=== PATIENT | male | born 1935 | race Caucasian/White ===

== ENCOUNTER 2017-01-13 05:40 | Emergency (ER) | payer OTHER ==
[~2017-01-13] VITALS: Ht 165.1 cm; Wt 68.0 kg
[~2017-01-13 05:40] MED LIST: ACTOS45 MG PO; ASPIRIN81 M1 PO; BENAZEPRIL HYDRO5 M1 PO; CARVEDILOL6.25 MG PO; COREG6.25 MG PO; HYTRIN PO; IMDUR60 M1 PO; ISOSORBIDE MONO60 M1 PO; JANUMET 1000 MG1 TAB PO; JANUMET XR 10001 TE1 PO; LOTENSIN5 MG PO; RANEXA500 MG PO; SIMVASTATIN20 M1 PO; TERAZOSIN5 MG PO; ZOCOR20 MG PO
[2017-01-13 05:47] VITALS: BP 125/68
--- NOTE | 2017-01-13 05:58 | NUR ---
PT TAKEN TO BED 7
--- NOTE | 2017-01-13 06:07 | NUR ---
Tameka langston in [facility] - 01/13/17 at [address] Smith evaluating patient at bedside.
--- NOTE | 2017-01-13 06:08 | NUR ---
ACCIDENTALLY CUT RIGHT WRIST WITH THE BROKEN PLATE 30 MINUTES AGO. DENIES PAIN AT THIS TIME. PT IS AWAKE ALERT ORIENTED. ERMD AWARE.
--- NOTE | 2017-01-13 06:08 | NUR ---
Tameka langston in [facility] - 01/13/17 at [address] Smith evaluating patient at bedside.
[2017-01-13] MEDS ORDERED: LIDOCAINE/EPI 1% 1:100000 20 ML VIAL INJ ONE (06:15)
--- NOTE | 2017-01-13 06:20 | NUR ---
Dr. Smith evaluating patient at bedside.
[2017-01-13] MEDS ORDERED: BACITRACIN OINT 500 UNITS/GM PKT TP ONE ×3 (06:50→06:52)
[2017-01-13 06:59] VITALS: BP 121/75
--- NOTE | 2017-01-13 07:00 | NUR ---
Patient discharged with v/s stable. Written and verbal after care instructions given and explained. Patient alert, oriented and verbalized understanding of instructions. Ambulatory with steady gait. All questions addressed prior to discharge. ID band removed. Patient advised to follow up with PMD. Rx of ACETAMINOPHEN 500MG 1 TAB EVERY 6 HOURS NEEDED FOR PAIN given. Patient educated on indication of medication including possible reaction and side effects. Opportunity to ask questions provided and answered.
== END 2017-01-13 07:00 | disposition home or self-care (01) ==
LOC: MED 05:40
DX: S61.511A Laceration without foreign body of right wrist, initial encounter (principal); E11.9 Type 2 diabetes mellitus without complications; I10 Essential (primary) hypertension; Z85.46 Personal history of malignant neoplasm of prostate; Z79.82 Long term (current) use of aspirin; Z79.899 Other long term (current) drug therapy; W45.8XXA Other foreign body or object entering through skin, initial encounter; W22.8XXA Striking against or struck by other objects, initial encounter; Y93.89 Activity, other specified; Y92.89 Other specified places as the place of occurrence of the external cause; Y99.8 Other external cause status
CPT/HCPCS: 12031; 90471; 90715; 99283; J2001

== ENCOUNTER 2017-01-27 12:06 | Emergency (ER) | payer OTHER ==
[~2017-01-27] VITALS: Ht 165.1 cm; Wt 69.4 kg
[~2017-01-27 12:06] MED LIST changes: -ACTOS45 MG PO; +ASPI81CT89 PO; -ASPIRIN81 M1 PO; +BENA5TAB13 PO; -BENAZEPRIL HYDRO5 M1 PO; +CARV6.25 PO; -CARVEDILOL6.25 MG PO; -COREG6.25 MG PO; -HYTRIN PO; -IMDUR60 M1 PO; +ISOS60TE PO; -ISOSORBIDE MONO60 M1 PO; -JANUMET 1000 MG1 TAB PO; -JANUMET XR 10001 TE1 PO; -LOTENSIN5 MG PO; +METF1TER8 PO; -RANEXA500 MG PO; +RANO500T3 PO; +SIMV20TA1 PO; -SIMVASTATIN20 M1 PO; +TERA5CAP8 PO; -TERAZOSIN5 MG PO; -ZOCOR20 MG PO
[2017-01-27 12:18] VITALS: BP 115/58
--- NOTE | 2017-01-27 12:30 | NUR ---
PATIENT PRESENTS TO ED WITH LACERATION REPAIRED RIGHT WRIST . PT STATES HERE FOR SUTURE REMOVAL . DENIES N/V/D; SKIN IS PINK/WARM/DRY; AAOX4 WITH EVEN AND STEADY GAIT; LUNGS CLEAR BL; HR EVEN AND REGULAR; PT DENIES ANY FEVER, CP, SOB, OR COUGH AT THIS TIME; PATIENT STATES PAIN OF 0/10 AT THIS TIME; VSS; PATIENT POSITIONED FOR COMFORT; HOB ELEVATED; BEDRAILS UP X2; BED DOWN. ER MD MADE AWARE OF PT STATUS.
--- NOTE | 2017-01-27 12:42 | NUR ---
Patient discharged with v/s stable. Written and verbal after care instructions given and explained. Patient verbalized understanding. Ambulatory with steady gait. All questions addressed prior to discharge. Advised to follow up with PMD.
[2017-01-27 12:43] VITALS: BP 132/82
== END 2017-01-27 12:42 | disposition home or self-care (01) ==
LOC: MED 12:06
DX: S61.511D Laceration without foreign body of right wrist, subsequent encounter (principal); E11.9 Type 2 diabetes mellitus without complications; I10 Essential (primary) hypertension; Z86.79 Personal history of other diseases of the circulatory system; Z85.46 Personal history of malignant neoplasm of prostate; Z79.82 Long term (current) use of aspirin; W22.8XXD Striking against or struck by other objects, subsequent encounter; Y92.89 Other specified places as the place of occurrence of the external cause; Y99.8 Other external cause status
CPT/HCPCS: 82948; 99283

== ENCOUNTER 2018-02-15 13:13 | Emergency (ER) | payer OTHER ==
[~2018-02-15] VITALS: Ht 160 cm; Wt 66.7 kg
[2018-02-15 13:24] VITALS: BP 149/84
--- NOTE | 2018-02-15 13:24 | NUR ---
Pt ambulated with assistance of daughter to bed 4.
--- NOTE | 2018-02-15 13:35 | NUR ---
82/M bib family accompanied to bed by daughter for evaluation of fall earlier today. Pt reports he had a trip and fall, pt denies syncope or loss of conciousness. Pt denies any pain at this time. Two skin tears to right arm and one to left arm. Pt has laceration to inner upper lip and swelling, no active bleeding noted. Patient is acting normal for patient according to daughter. Speech is slightly slurred and delayed. AOX4. Indonesian speaking. VSS. Daughter at bedside. Pt sitting at bedside comfortably. One side rail up. All needs addressed. Awaiting ERMD.
--- NOTE | 2018-02-15 14:19 | NUR ---
REPORT GIVEN TO MAAME MADSEN.
--- NOTE | 2018-02-15 15:25 | NUR ---
DR SHARP AT BEDSIDE SPEAKING WITH PT AT FAMILY
[2018-02-15 15:49] VITALS: BP 142/82
--- NOTE | 2018-02-15 15:49 | NUR ---
Patient discharged with v/s stable. Written and verbal after care instructions given and explained. Patient alert, oriented and verbalized understanding of instructions. Ambulatory with steady gait. All questions addressed prior to discharge. ID band removed. Patient advised to follow up with PMD. Rx of MOTRIN 800MG, CLINDAMYCIN 300MG given. Patient educated on indication of medication including possible reaction and side effects. Opportunity to ask questions provided and answered.
== END 2018-02-15 15:49 | disposition home or self-care (01) ==
LOC: MED 13:13
DX: S02.32XA Fracture of orbital floor, left side, initial encounter for closed fracture (principal); S01.511A Laceration without foreign body of lip, initial encounter; E11.9 Type 2 diabetes mellitus without complications; I10 Essential (primary) hypertension; Z85.46 Personal history of malignant neoplasm of prostate; W10.9XXA Fall (on) (from) unspecified stairs and steps, initial encounter; Y93.89 Activity, other specified; Y99.8 Other external cause status; Y92.89 Other specified places as the place of occurrence of the external cause; Z79.899 Other long term (current) drug therapy
CPT/HCPCS: 70486; 82948; 90715; 93005; 99284

== ENCOUNTER 2018-03-05 10:00 | Emergency (ER) | payer OTHER ==
[~2018-03-05] VITALS: Ht 162.6 cm; Wt 69.2 kg
[2018-03-05 10:09] VITALS: BP 140/77
--- NOTE | 2018-03-05 10:16 | NUR ---
PT AMBULATES TO BED 8, REPORT GIVEN TO CALE POND
--- NOTE | 2018-03-05 10:30 | NUR ---
PT. BIB BY DAUGHTER TO ED C/O FANTA. LEG SWELLING X 2 WEEKS AND L EYE SWELLING . DAUGHTER STATES " HE HAS HAD THIS LEG SWELLING FOR 2 WEEKS I HAVE TAKEN HIM TO HIS PRIMARY BUT IT HAS GOTTEN WORSE, ALSO HE WOKE UP WITH HIS L EYE BEING SWOLLEN AND SOME CLEAR FLUID DRAINAGE COMING OUT". PT. AAOX4, RR EVEN AND UNLABORED, LS: CLEAR BILATERALLY, DENIES PAIN, DENIES CP, DENIES SOB, PT. HAS FANTA ANKLE SWELLING 3+ PITTING, ABD ROUND AND HARD DENIES PAIN UPON PALPATION, L EYE SWELLING NOTED, W NO VISION CHANGES AT THIS TIME. PUPILS EQUAL ROUND AND REACTIVE 2MM TO LIGHT. DENIES N/V/D. ER NOTIFIED. WILL CONTINUE TO MONITOR.
--- NOTE | 2018-03-05 10:53 | NUR ---
PT. UNABLE TO PROVIDE URINE SAMPLE AT THIS TIME, PROVIDED WATER.
[2018-03-05 11:00] LABS: BASOPHILS % (AUTO) 0.5 % (0.0-2.0); EOSINOPHILS % (AUTO) 0.3 % (0.0-4.0); HEMATOCRIT 32.7 % (36-52); HEMOGLOBIN 10.7 g/dL (12.0-18.0); LYMPHOCYTES # (AUTO) 0.8 K/uL (2.0-11.5); LYMPHOCYTES % (AUTO) 9.8 % (20.5-51.1); MEAN CORPUSCULAR HEMOGLOBIN 26 pg (27-31); MEAN CORPUSCULAR HGB CONC 33 g/dL (33-37); MEAN CORPUSCULAR VOLUME 79.1 fL (80-94); MONOCYTES # (AUTO) 0.9 K/uL (0.8-1.0); NEUTROPHILS # (AUTO) 6.4 K/uL (1.8-7.7); NEUTROPHILS % (AUTO) 78.4 % (42.2-75.2); PLATELET COUNT (AUTO) 230 K/uL (140-450); RED BLOOD CELL COUNT(AUTO) 4.13 MIL/uL (4.20-6.10); RED CELL DISTRIBUTION WIDTH 15.3 % (11.6-13.7); WHITE BLOOD COUNT (AUTO) 8.2 K/uL (4.8-10.8)
--- NOTE | 2018-03-05 11:10 | NUR ---
AMBULATED PT TO RESTROOM, STEADY GAIT, UNABLE TO PROVIDE URINE AT THIS TIME, ER NOTIFIED. PROVIDED MORE WATER TO PT.
[2018-03-05 11:19] LABS: ANION GAP 13.4 (8-16); CARBON DIOXIDE 24.2 mmol/L (21-32); CHLORIDE 85 mmol/L (98-107); CREATININE 0.8 mg/dL (0.7-1.3); GLUCOSE 154 mg/dL (74-106); POTASSIUM 4.6 mmol/L (3.5-5.1); SODIUM SERUM 118 mmol/L (136-145); UREA NITROGEN, BLOOD 8 mg/dL (7-18)
--- NOTE | 2018-03-05 11:19 | NUR ---
LENKA FROM LAB CALLED W/ CRITICAL LAB VALUE OF SODIUM: 118. DR. EL NOTIFIED. AWAITING ORDERS, WILL CONTINUE TO MONITOR.
--- NOTE | 2018-03-05 11:19 | NUR ---
Tameka langston in [facility] - 03/05/18 at 1126 by MEDJASON GAVIN FROM LAB CALLED W/ CRITICAL LAB VALUE OF SODIUM: 118. DR. EL NOTIFIED. AWAITING ORDERS, WILL CONTINUE TO MONITOR.
[2018-03-05 11:20] LABS: ALBUMIN 2.6 g/dL (3.4-5.0); ASPARTATE AMINOTRANSFERASE 26 U/L (15-37); TOTAL BILIRUBIN 0.5 mg/dL (0.0-1.0)
--- NOTE | 2018-03-05 12:15 | NUR ---
PT. IN BED RESTING COMFORTABLY, RR EVEN AND UNLABORED, NO COMPLAINTS AT THIS TIME, BED IN LOWEST POSITION, AT BEDSIDE WILL CONTINUE TO MONITOR.
[2018-03-05 13:25] VITALS: BP 168/84
== END 2018-03-05 13:22 | disposition home or self-care (01) ==
LOC: MED 10:00
DX: I11.0 Hypertensive heart disease with heart failure (principal); I50.9 Heart failure, unspecified; D64.9 Anemia, unspecified; E11.9 Type 2 diabetes mellitus without complications; E87.1 Hypo-osmolality and hyponatremia; Z86.73 Personal history of transient ischemic attack (TIA), and cerebral infarction without residual deficits; Z85.46 Personal history of malignant neoplasm of prostate; Z98.61 Coronary angioplasty status; Z79.899 Other long term (current) drug therapy
CPT/HCPCS: 71045; 80053; 83880; 84484; 85025; 93005; 99285; Q0092

== ENCOUNTER 2018-04-23 22:50 | Inpatient (IN) | payer OTHER ==
[~2018-04-23] VITALS: Ht 165.1 cm; Wt 68.0 kg
[2018-04-23 23:08] VITALS: BP 129/65
--- NOTE | 2018-04-23 23:13 | NUR ---
TO LOBBY A/W BED, ECTOR DIAMOND NOTED
--- NOTE | 2018-04-23 23:50 | NUR ---
PT TAKEN TO BED 8
--- NOTE | 2018-04-24 | NUR ---
PATIENT IS A 82 Y/O MALE WHO PRESENTS TO THE ED C/O BILATERAL LEG PAIN. DAUGHTER STATES THAT HE WAS ADMITTED TO [facility] WITH [facility]ILAR SXS. PT DOES NOT REPORT PAIN. NOTED +2 BILATERAL PITTING EDEMA. PT DENIES CP, SOB, N/V/D. PT AWAKE AND ALERT, RR EVEN/UNLABORED. PT REPOSITIONED FOR COMFORT, BED IN LOWEST POSITION. ER MD DR. GARRISON NOTIFIED. WILL CONTINUE TO MONITOR.
--- NOTE | 2018-04-24 00:44 | NUR ---
Dr. Smith evaluating patient at bedside.
[2018-04-24 01:13] LABS: GLUCOSE 323 mg/dL (74-106); UREA NITROGEN, BLOOD 13 mg/dL (7-18)
[2018-04-24 01:14] LABS: CREATININE 0.9 mg/dL (0.7-1.3)
[2018-04-24 01:17] LABS: ANION GAP 11.4 (8-16); CARBON DIOXIDE 24.3 mmol/L (21-32); CHLORIDE 87 mmol/L (98-107); POTASSIUM 4.7 mmol/L (3.5-5.1); SODIUM SERUM 118 mmol/L (136-145)
--- NOTE | 2018-04-24 01:30 | NUR ---
PATIENT RESTING AT THIS TIME. NO SIGNS OF DISTRESS.
[2018-04-24] MEDS ORDERED: NACL 0.9% 1,000 ML IV ONE (01:40)
--- NOTE | 2018-04-24 02:16 | NUR ---
# 16 FR Davidson catheter with 10 ml utilizing sterile technique. Immediate return of 2000 ml COCA COLA urine noted. Bedside drainage bag placed below level of bladder. Urine sample collected and sent to lab. Pt tolerated procedure WELL.
[2018-04-24] MEDS ORDERED: ONDANSETRON 4 MG/2 ML VIAL IM/IVP PRN (02:20)
[2018-04-24] MEDS ORDERED: HYDROcodone/APAP 5/325 MG 1 TAB TAB PO PRN (02:20)
[2018-04-24] MEDS ORDERED: DOCUSATE SODIUM 100 MG GELCAP PO PRN (02:20)
[2018-04-24] MEDS ORDERED: ACETAMINOPHEN 325 MG TAB PO PRN (02:20)
--- NOTE | 2018-04-24 02:37 | NUR ---
Dr. Fox evaluating patient at bedside.
[2018-04-24 02:43] LABS: PROTHROMBIN TIME 10.7 secs (10.8-13.4)
[2018-04-24 02:55] LABS: MEAN CORPUSCULAR HEMOGLOBIN 26 pg (27-31); MEAN CORPUSCULAR HGB CONC 32 g/dL (33-37); MEAN CORPUSCULAR VOLUME 79.4 fL (80-94); RED BLOOD CELL COUNT(AUTO) 3.53 MIL/uL (4.20-6.10); WHITE BLOOD COUNT (AUTO) 8.8 K/uL (4.8-10.8)
[2018-04-24 02:56] LABS: LYMPHOCYTES % (AUTO) 8.7 % (20.5-51.1); PLATELET COUNT (AUTO) 237 K/uL (140-450); RED CELL DISTRIBUTION WIDTH 15.9 % (11.6-13.7)
[2018-04-24 02:57] LABS: BASOPHILS % (AUTO) 0.3 % (0.0-2.0); EOSINOPHILS % (AUTO) 0.5 % (0.0-4.0); LYMPHOCYTES # (AUTO) 0.8 K/uL (2.0-11.5); MONOCYTES % (AUTO) 11.5 % (1.7-9.3)
--- NOTE | 2018-04-24 03:11 | NUR ---
Patient will be admitted to care of DR. STEEL. Admited to TELE. Will go to room 110B. Belongings list completed. Report to LOY MADSEN.
[2018-04-24 03:24] LABS: MAGNESIUM 1.4 mg/dL (1.8-2.4)
[2018-04-24 03:25] LABS: FREE T4 (FREE THYROXINE) 1.14 ng/dL (0.76-1.46); THYROID STIMULATING HORMONE 1.68 uIU/mL (0.34-3.74)
--- NOTE | 2018-04-24 03:25 | NUR ---
ADMITTED PATIENT TO THE TELE UNIT, PATIENT AWAKE ORIENTED X2, BULGARIAN SPEAKING. NO S/S OF DISTRESS NOTED, RESPIRATION EVEN AND UNLABORED, ON ROOM AIR. IV PATENT AND INTACT, MALCOLM IN PLACE, DRAINING PINK URINE BY GRAVITY. CALL LIGHT WAS NOT AVAILABLE IN THE ROOM, CHARGE IS AWARE AND WILL INFORMED THE ENGINEERING DEPARTMENT. SAFETY MEASURE ENSURED, WILL CONTINUE TO MONITOR.
[2018-04-24 03:35] VITALS: BP 136/51
[2018-04-24] MEDS ORDERED: LORazepam 1 MG TAB PO PRN ×2 (03:40→15:33)
[2018-04-24] MEDS ORDERED: DEXTROSE 50% 50 ML SYR IVP PRN (03:40)
[2018-04-24 03:44] LABS: CHOL/HDL RATIO 2.4 (1-4.5)
[2018-04-24] MEDS ORDERED: FUROSEMIDE 20 MG/2 ML VIAL IVP SCH ×2 (04:15→15:00)
[2018-04-24] MEDS ORDERED: SODIUM CHLORIDE 1 GM TAB PO SCH ×2 (04:15→07:30)
[2018-04-24] MEDS ORDERED: MAGNESIUM OXIDE 400 MG TAB PO SCH (04:15)
--- NOTE | 2018-04-24 04:26 | NUR ---
SALT TAB NOT AVAILABLE, MANAGER HVAC UNABLE TO GET THE SALT TAB, INFORMED DR. FABIEN DR SAID," IT'S OKAY TO WAIT UNTIL MORNING SHIFT."
--- NOTE | 2018-04-24 05:59 | NUR ---
PATIENT LEFT UNIT FOR HEAD CT IN STABLE CONDITION.
--- NOTE | 2018-04-24 06:15 | NUR ---
PATIENT BACK TO THE ROOM, RESTING IN BED, NO S/S OF DISTRESS NOTED.
--- NOTE | 2018-04-24 06:24 | NUR ---
RECEIVED FAX FOR CT HEAD RESULT, MADE DR. LEHMAN AWARE. NO ORDER RECEIVED AT THIS TIME.
[2018-04-24 06:44] LABS: ALBUMIN 2.3 g/dL (3.4-5.0); BILIRUBIN,DIRECT 0.2 mg/dL (0.0-0.3); TOTAL BILIRUBIN 0.3 mg/dL (0.0-1.0)
[2018-04-24 06:48] LABS: ANION GAP 12.4 (8-16); CARBON DIOXIDE 23.8 mmol/L (21-32); CHLORIDE 90 mmol/L (98-107); CREATININE 0.8 mg/dL (0.7-1.3); GLUCOSE 176 mg/dL (74-106); POTASSIUM 4.2 mmol/L (3.5-5.1); UREA NITROGEN, BLOOD 11 mg/dL (7-18)
[2018-04-24 07:10] LABS: MAGNESIUM 1.3 mg/dL (1.8-2.4); PHOSPHORUS 2.9 mg/dL (2.5-4.9)
--- NOTE | 2018-04-24 07:25 | NUR ---
ENDORSED PLAN OF CARE TO DAY SHIFT, PATIENT IS IN STABLE CONDITION.
--- NOTE | 2018-04-24 07:26 | NUR ---
RECEIVED BEDSIDE REPORT FROM SENIOR IOS DEVELOPER NURSE. PATIENT IS SLEEPING. EASILY AROUSABLE. NO SIGNS OF DISTRESS ON ROOM AIR. SEIZURE PRECAUTIONS IN PLACE. IV ON R HAND 20G SALINE LOCK. CLEAN, DRY AND INTACT. TELE MONITOR IN PLACE. FALL PRECAUTIONS IN PLACE. PATIENT HAS A MALCOLM WITH BRIGHT RED URINE. FAMILY IS CONCERNED. IN TO SEE THE PATIENT. PATIENT HAS A ICD. STOMACH IS ROUND, SOFT. PATIENT TO AMBULATE WITH ASSIST D/T GENERALIZED WEAKNESS. BED IN LOW POSITION. FAMILY AT BEDSIDE. WILL CONTINUE TO MONITOR Addendum: 04/24/18 at 1733 by Patricia Toribio RN BLE PITTING EDEMA +2
[2018-04-24] MEDS: INSULIN LISPRO SLIDING SCALE 100 UNITS/ML VIAL SUBQ PRN ×4 (07:36→21:42)
[2018-04-24] MEDS: BLOOD GLUCOSE MONITORING 1 DEV DEV FS SCH ×4 (07:36→21:07)
[2018-04-24 07:37] LABS: SODIUM SERUM 122 mmol/L (136-145)
[2018-04-24 07:42] LABS: RED BLOOD CELL COUNT(AUTO) 3.43 MIL/uL (4.20-6.10); WHITE BLOOD COUNT (AUTO) 7.2 K/uL (4.8-10.8)
[2018-04-24 07:43] LABS: HEMATOCRIT 27.7 % (36-52); HEMOGLOBIN 8.9 g/dL (12.0-18.0); MEAN CORPUSCULAR HEMOGLOBIN 26 pg (27-31); MEAN CORPUSCULAR HGB CONC 32 g/dL (33-37); MEAN CORPUSCULAR VOLUME 80.7 fL (80-94); PLATELET COUNT (AUTO) 226 K/uL (140-450)
[2018-04-24 07:44] LABS: BASOPHILS % (AUTO) 0.3 % (0.0-2.0); EOSINOPHILS % (AUTO) 0.6 % (0.0-4.0); LYMPHOCYTES % (AUTO) 10.6 % (20.5-51.1); MONOCYTES % (AUTO) 11.5 % (1.7-9.3)
[2018-04-24 08:00] VITALS: BP 130/49
[2018-04-24] MEDS ORDERED: [UNRECOGNIZED DRUG - OTHER] PO SCH (09:00)
[2018-04-24] MEDS ORDERED: TERAZOSIN 5 MG CAP PO SCH (09:00)
[2018-04-24] MEDS ORDERED: SITAGLIPTIN PHOS PO SCH (09:00)
[2018-04-24] MEDS ORDERED: TERAZOSIN 1 MG CAP PO SCH (09:00)
[2018-04-24] MEDS ORDERED: METFORMIN HCL PO SCH (09:00)
[2018-04-24] MEDS: levETIRAcetam 500 MG TAB PO SCH ×2 (10:13→21:39)
[2018-04-24] MEDS: BENAZEPRIL 5 MG TAB PO SCH (10:13)
[2018-04-24] MEDS: ISOSORBIDE MONONITRATE 30 MG TABER PO SCH (10:13)
[2018-04-24] MEDS: ASPIRIN 81 MG TAB.CHEW PO SCH (10:13)
[2018-04-24] MEDS: NACL 0.9% 1,000 ML IV SCH ×2 (10:14→21:43)
--- NOTE | 2018-04-24 10:15 | NUR ---
ADMINISTERED MEDS. PATIENT TOLERATED WELL. WILL CONTINUE TO MONITOR THE PATIENT. AT BEDSIDE
--- NOTE | 2018-04-24 10:33 | NUR ---
PATIENT HAS BEEN SCREENED AND CATEGORIZED MODERATE NUTRITION RISK. PATIENT WILL BE SEEN WITHIN 3-5 DAYS OF ADMISSION. 04/26/18 04/28/[address]
[2018-04-24] MEDS ORDERED: FURO-570 PO (11:18)
[2018-04-24] MEDS ORDERED: TAMS0.4C96 PO (11:30)
[2018-04-24] MEDS ORDERED: SPIR25TA PO (11:31)
[2018-04-24 11:40] LABS: APPEARANCE,URINE CLOUDY (CLEAR); BILIRUBIN,URINE NEGATIVE (NEGATIVE); BLOOD, URINE 3+ (NEGATIVE); COLOR,URINE RED (YELLOW); LEUKOCYTE ESTERASE ,URINE NEGATIVE (NEGATIVE); NITRITE, URINE POSITIVE (NEGATIVE); UGLUCOSE NEGATIVE (NEGATIVE)
[2018-04-24 11:48] LABS: RBC,URINE TOO NUMEROUS TO COUN /HPF (0-5); WBC,URINE NONE SEEN /HPF (0-5)
[2018-04-24 12:00] VITALS: BP 97/57
--- NOTE | 2018-04-24 12:00 | NUR ---
VITALS ARE WITHIN NORMAL LIMITS. PATIENT WANTS TO HAVE A BM, EXCEL EXPERT HELPED PATIENT AMBULATE TO THE RESTROOM. GAIT IS UNSTEADY. WILL CONTINUE TO MONITOR THE PATIENT
[2018-04-24] MEDS ORDERED: MAG SULF 2000 MG/WATER PREMIX 100 ML IV ONE (13:10)
--- NOTE | 2018-04-24 13:20 | NUR ---
ADMINISTERED PRN HUMALOG. PATIENT TOLERATED WELL. NO OTHER COMPLAINTS AT THIS TIME. WILL CONTINUE TO MONITOR THE PATIENT
[2018-04-24] MEDS ORDERED: FUROSEMIDE 40 MG/4 ML VIAL IVP SCH (13:30)
[2018-04-24] MEDS ORDERED: CARV3.12 PO (13:34)
[2018-04-24] MEDS ORDERED: ORE25 PO (13:35)
[2018-04-24] MEDS ORDERED: NITROGLYCERIN 0.4 MG TAB SL PRN (13:35)
[2018-04-24] MEDS ORDERED: INSU-1331 SC (13:38)
[2018-04-24] MEDS ORDERED: NITR0.4T2 SL (13:40)
[2018-04-24] MEDS ORDERED: HYDROCHLOROTHIAZIDE 25 MG TAB PO SCH (14:00)
[2018-04-24] MEDS ORDERED: MAGNESIUM SULFATE 4GM in STERILE WATER 100 ML PREMIX IV SCH (14:30)
[2018-04-24 14:50] VITALS: BP 103/48
--- NOTE | 2018-04-24 15:10 | NUR ---
ADMINISTERED PRN PAIN MEDS FOR L LEG PAIN. WILL CONTINUE TO MONITOR PATIENT.
[2018-04-24 15:24] LABS: ANION GAP 14.8 (8-16); CARBON DIOXIDE 21.7 mmol/L (21-32); CHLORIDE 91 mmol/L (98-107); CREATININE 0.9 mg/dL (0.7-1.3); GLUCOSE 232 mg/dL (74-106); POTASSIUM 4.5 mmol/L (3.5-5.1); UREA NITROGEN, BLOOD 11 mg/dL (7-18)
[2018-04-24 15:28] LABS: SODIUM SERUM 123 mmol/L (136-145)
[2018-04-24 16:00] VITALS: BP 111/47
[2018-04-24] MEDS: metFORMIN 850 MG TAB PO SCH (17:24)
--- NOTE | 2018-04-24 17:28 | NUR ---
ADMINISTERED MEDS. PATIENT TOLERATED WELL. ULTRASOUND OF THE ABD BEING DONE RIGHT NOW, WILL CONTINUE TO MONITOR THE PATIENT
--- NOTE | 2018-04-24 18:00 | NUR ---
PATIENT TRANSFERRED FROM 110B TO 108A. PATIENT TRANSFERRED AND IS IN STABLE CONDITION.
--- NOTE | 2018-04-24 19:29 | NUR ---
GAVE BEDSIDE REPORT TO GLASS CUTTING MACHINE OPERATOR NURSE. PATIENT ENDORSE IN STABLE CONDITION
--- NOTE | 2018-04-24 19:35 | NUR ---
RECEIVED REPORT FROM DAY SHIFT RN, PATIENT RESTING IN BED, FAMILY MEMBERS AT THE BEDSIDE. NO S/S OF DISTRESS NOTED, RESPIRATION EVEN AND UNLABORED, IV PATENT AND INTACT, INFUSING FLUID WELL. CALL LIGHT WITHIN REACH, SAFETY MEASURE ENSURED, WILL CONTINUE TO MONITOR.
[2018-04-24 20:00] VITALS: BP 104/51
[2018-04-24] MEDS ORDERED: RANOLAZINE 500 MG PO SCH (21:00)
[2018-04-24] MEDS ORDERED: INSULIN DETEMIR U SCH (21:00)
[2018-04-24] MEDS: CARVEDILOL 3.125 MG TAB PO SCH (21:39)
[2018-04-24] MEDS: SIMVASTATIN 20 MG TAB PO SCH (21:39)
[2018-04-24] MEDS: RANOLAZINE 500 MG TER PO SCH (21:40)
--- NOTE | 2018-04-24 21:40 | NUR ---
DUE MEDICATION GIVEN, PATIENT TOLERATED WELL. NO S/S OF DISTRESS NOTED, CALL LIGHT WITHIN REACH, SAFETY MEASURE ENSURED, WILL CONTINUE TO MONITOR.
[2018-04-24] MEDS: INSULIN LANTUS 100 UNITS/ML 10 ML VIAL SUBQ SCH (21:41)
--- NOTE | 2018-04-24 22:35 | NUR ---
PATIENT IS SLEEPING, RESPIRATION EVEN AND UNLABORED, CALL LIGHT WITHIN REACH, SAFETY MEASURE ENSURED, WILL CONTINUE TO MONITOR.
[2018-04-24 23:53] LABS: ANION GAP 10.9 (8-16); CARBON DIOXIDE 25.5 mmol/L (21-32); CHLORIDE 91 mmol/L (98-107); CREATININE 0.9 mg/dL (0.7-1.3); GLUCOSE 181 mg/dL (74-106); POTASSIUM 4.4 mmol/L (3.5-5.1); UREA NITROGEN, BLOOD 14 mg/dL (7-18)
[2018-04-25] VITALS: BP 124/57
[2018-04-25] MEDS ORDERED: SODIUM CHLORIDE 1 GM TAB PO SCH
[2018-04-25 00:01] LABS: SODIUM SERUM 123 mmol/L (136-145)
--- NOTE | 2018-04-25 00:19 | NUR ---
SALT TABLET NOT AVAILABLE, NOTIFIED DR. CONN, BP 124/57, LASIX GIVEN ORDERED. PATIENT TOLERATED WELL. WILL CONTINUE TO MONITOR.
--- NOTE | 2018-04-25 02:15 | NUR ---
NO S/S OF DISTRESS NOTED, RESPIRATION EVEN AND UNLABORED, CALL LIGHT WITHIN REACH, SAFETY MEASURE ENSURED, WILL CONTINUE TO MONITOR.
[2018-04-25 04:04] VITALS: BP 103/49
--- NOTE | 2018-04-25 04:13 | NUR ---
VITAL SIGNS STABLE, NO S/S OF DISTRESS NOTED, RESPIRATION EVEN AND UNLABORED, CALL LIGHT WITHIN REACH, SAFETY MEASURE ENSURED, WILL CONTINUE TO MONITOR.
--- NOTE | 2018-04-25 07:15 | NUR ---
ENDORSED PLAN OF CARE TO DAY SHIFT RN, PATIENT IS IN STABLE CONDITION.
--- NOTE | 2018-04-25 07:16 | NUR ---
RECEIVED BEDSIDE REPORT FROM AFRICAN STUDIES PROFESSOR NURSE. PATIENT IS AWAKE, ALERT AND ORIENTEDX4. NO SIGNS OF DISTRESS ON ROOM AIR. HE AMBULATES W ASSIST D/T GENERALIZED WEAKNESS AND PATIENT HAS L SIDE DEFICIT FROM HX OF STROKE. SKIN IS INTACT. IV ON L HAND 20G INFUSING NS AT 70. IV IS CLEAN, DRY AND INTACT. PATIENT HAS A MALCOLM, TRISTEN URINE. TELE MONITOR IN PLACE. PATIENT HAS NO SOCKS BECAUSE HE REFUSED, BLE EDEMA +1 PITTING. NO OTHER COMPLAINTS AT THIS TIME. WILL CONTINUE TO MONITOR THE PATIENT.
[2018-04-25 07:22] LABS: RED BLOOD CELL COUNT(AUTO) 3.77 MIL/uL (4.20-6.10); WHITE BLOOD COUNT (AUTO) 6.9 K/uL (4.8-10.8)
[2018-04-25 07:25] LABS: HEMOGLOBIN 9.7 g/dL (12.0-18.0)
[2018-04-25 07:26] LABS: HEMATOCRIT 30.2 % (36-52); MEAN CORPUSCULAR VOLUME 80.1 fL (80-94)
[2018-04-25 07:31] LABS: MEAN CORPUSCULAR HEMOGLOBIN 26 pg (27-31); MEAN CORPUSCULAR HGB CONC 32 g/dL (33-37); RED CELL DISTRIBUTION WIDTH 16.2 % (11.6-13.7)
[2018-04-25 07:32] LABS: BASOPHILS % (AUTO) 0.6 % (0.0-2.0); EOSINOPHILS % (AUTO) 0.9 % (0.0-4.0); LYMPHOCYTES % (AUTO) 7.5 % (20.5-51.1); MONOCYTES % (AUTO) 10.9 % (1.7-9.3); NEUTROPHILS % (AUTO) 80.1 % (42.2-75.2); PLATELET COUNT (AUTO) 255 K/uL (140-450)
[2018-04-25 07:45] LABS: ANION GAP 12.1 (8-16); CARBON DIOXIDE 26.4 mmol/L (21-32); CHLORIDE 91 mmol/L (98-107); CREATININE 0.9 mg/dL (0.7-1.3); GLUCOSE 141 mg/dL (74-106); POTASSIUM 4.5 mmol/L (3.5-5.1); SODIUM SERUM 125 mmol/L (136-145); UREA NITROGEN, BLOOD 11 mg/dL (7-18)
[2018-04-25] MEDS: BLOOD GLUCOSE MONITORING 1 DEV DEV FS SCH ×4 (07:47→20:56)
[2018-04-25] MEDS: INSULIN LISPRO SLIDING SCALE 100 UNITS/ML VIAL SUBQ PRN ×3 (07:47→21:37)
[2018-04-25 08:00] VITALS: BP 122/50
[2018-04-25 08:20] LABS: FOLIC ACID 11.8 ng/mL (>3.0)
[2018-04-25] MEDS ORDERED: HYDROCHLOROTHIAZIDE 25 MG TAB PO SCH (09:00)
[2018-04-25] MEDS: levETIRAcetam 500 MG TAB PO SCH ×2 (09:00→20:56)
[2018-04-25] MEDS ORDERED: FUROSEMIDE 40 MG TAB PO SCH (09:00)
[2018-04-25] MEDS: CARVEDILOL 3.125 MG TAB PO SCH ×2 (09:00→20:56)
[2018-04-25] MEDS: BENAZEPRIL 5 MG TAB PO SCH (09:12)
[2018-04-25] MEDS: RANOLAZINE 500 MG TER PO SCH ×2 (09:12→21:30)
[2018-04-25] MEDS: ISOSORBIDE MONONITRATE 30 MG TABER PO SCH (09:12)
[2018-04-25] MEDS: SPIRONOLACTONE 25 MG TAB PO SCH (09:13)
[2018-04-25] MEDS: metFORMIN 850 MG TAB PO SCH ×2 (09:13→16:32)
[2018-04-25] MEDS: TAMSULOSIN 0.4 MG CAP PO SCH (09:14)
[2018-04-25] MEDS: ASPIRIN 81 MG TAB.CHEW PO SCH (09:14)
--- NOTE | 2018-04-25 09:23 | NUR ---
ADMINISTERED MEDS. PATIENT REFUSED CT WITH CONTRAST. HE SAID HE JUST WANTS TO GO HOME. DAUGHTER IS TRYING TO CONVINCE HIM BUT HE KEEPS REFUSING. DAUGHTER ALSO REFUSED KEPPRA BECAUSE THE DR HAD STOPPED THAT DOSE FOR HIM. WILL CONTINUE TO MONITOR THE PATIENT. BED IN LOW POSITION. CALL LIGHT WITHIN REACH. WILL CONTINUE TO MONITOR THE PATIENT. FAMILY AT BEDSIDE.
--- NOTE | 2018-04-25 10:19 | NUR ---
[facility] PATIENT TRANSFERRED IN STABLE CONDITION. NO COMPLAINTS AT THIS TIME. WILL CONTINUE TO MONITOR THE PATIENT. AT BEDSIDE
[2018-04-25] MEDS ORDERED: MAG SULF 2000 MG/WATER PREMIX 100 ML IV STA (10:44)
[2018-04-25 12:00] VITALS: BP 114/50
[2018-04-25] MEDS ORDERED: FUROSEMIDE 20 MG/2 ML VIAL IVP SCH ×2 (12:00)
[2018-04-25] MEDS: NACL 0.9% 1,000 ML IV SCH (12:02)
--- NOTE | 2018-04-25 12:29 | NUR ---
ADMINISTERED MEDS. PATIENT TOLERATED WELL. IV IS CLEAN, DRY AND INTACT. PATIENT EATING BREAKFAST AT THE SIDE OF BED. AT BEDSIDE
--- NOTE | 2018-04-25 14:28 | NUR ---
PATIENT AMBULATED WITH PHYSICAL THERAPY, PATIENT TOLERATED WELL. HE USED WALKER AND WAS STEADY. NO SOB OR DISTRESS. PATIENT BACK IN BED. SITTING COOPERATIVELY. WILL CONTINUE TO MONITOR THE PATIENT
[2018-04-25 15:18] LABS: T4 (THYROXINE) 7.6 ug/dL (4.5-12.0)
--- NOTE | 2018-04-25 15:48 | NUR ---
PHYSICAL THERAPY CO-SIGN The Physical Therapy Progress Notes documented by Assistant Finance Manager have been reviewed. Reviewed/Co-Signed by: Rosa Garcia PT Documentation Done by:SHERINE LYNNE PURIFICATION DIRECTOR POC REVIEWED W/ PURIFICATION DIRECTOR; WILL BENEFIT W/ P.T. DURING ACUTE STAY, FWW FOR HOME USE. Addendum: 04/25/18 at 1548 by Rosa Garcia PT Amended: Links added.
[2018-04-25 16:00] VITALS: BP 100/37
--- NOTE | 2018-04-25 16:35 | NUR ---
ADMINISTERED MEDS. PATIENT TOLERATED WELL. PATIENT REQUESTING ICE WATER. WILL GET HIM SOME WATER. BED IN LOW POSITION. FAMILY AT BEDSIDE.
--- NOTE | 2018-04-25 17:43 | NUR ---
PATIENT IS SLEEPING. NO SIGNS OF DISTRESS ON ROOM AIR. WILL CONTINUE TO MONITOR THE PATIENT.
--- NOTE | 2018-04-25 19:10 | NUR ---
GAVE BEDSIDE REPORT TO CARDIOPULMONARY SUPERVISOR NURSE. PATIENT ENDORSED IN STABLE CONDITION
--- NOTE | 2018-04-25 19:11 | NUR ---
PATIENT REPORT RECEIVED FROM MORNING NURSE AT BEDSIDE. PATIENT IS AWAKE, ALERT AND ORIENTED. ARMENIAN SPEAKING. NO SIGNS AND SYMPTOMS OF DISTRESS NOTED. NO COMPLAINTS OF PAIN AT THIS TIME. PATIENT'S IS AT BEDSIDE. IV SITE NOTED ON LEFT ARM, IV FLUID INFUSING WELL. MALCOLM CATHETER IN PLACE DRAINING DARK TRISTEN URINE. PLAN OF CARE DISCUSSED WITH PATIENT. PATIENT VERBALIZED UNDERSTANDING. BED IN LOWEST POSITION, SIDE RAILS UP AND CALL LIGHT WITHIN REACH. WILL CONTINUE TO MONITOR
--- NOTE | 2018-04-25 19:30 | NUR ---
PATIENT'S DAUGHTER AT BEDSIDE. UPDATED HER ON PATIENT'S CONDITION
[2018-04-25 20:00] VITALS: BP 95/40
[2018-04-25] MEDS ORDERED: MAGNESIUM OXIDE 400 MG TAB PO SCH (21:00)
--- NOTE | 2018-04-25 21:00 | NUR ---
DAUGHTER KIRAN DOES NOT WANT PATIENT TO TAKE KEPPRA. WILL NOTIFY
--- NOTE | 2018-04-25 21:00 | NUR ---
MEDICATION EDUCATION GIVEN. PATIENT VERBALIZED UNDERSTANDING. MEDICATION ADMINISTERED ORDERED. PATIENT TOLERATED WELL. WILL CONTINUE TO MONITOR
[2018-04-25] MEDS: SIMVASTATIN 20 MG TAB PO SCH (21:29)
[2018-04-25] MEDS: INSULIN LANTUS 100 UNITS/ML 10 ML VIAL SUBQ SCH (21:35)
--- NOTE | 2018-04-25 23:00 | NUR ---
CHECKED ON PATIENT. PATIENT IS ASLEEP. NO SIGNS AND SYMPTOMS OF DISTRESS NOTED. WILL CONTINUE TO MONITOR
[2018-04-26] VITALS: BP 130/65
[2018-04-26] MEDS: NACL 0.9% 1,000 ML IV SCH (02:44)
--- NOTE | 2018-04-26 03:00 | NUR ---
CHECKED ON PATIENT. PATIENT IS ASLEEP. NO SIGNS AND SYMPTOMS OF DISTRESS NOTED. BREATHING EVEN AND UNLABORED. WILL CONTINUE TO MONITOR
[2018-04-26 04:00] VITALS: BP 123/56
--- NOTE | 2018-04-26 05:00 | NUR ---
PATIENT REFUSED AM LABS. WILL NOTIFY
[2018-04-26] MEDS: BLOOD GLUCOSE MONITORING 1 DEV DEV FS SCH ×4 (05:54→20:14)
--- NOTE | 2018-04-26 07:30 | NUR ---
PATIENT REPORT GIVEN TO MORNING NURSE AT BEDSIDE FOR CONTINUITY OF CARE. PATIENT IS IN STABLE CONDITION
--- NOTE | 2018-04-26 07:31 | NUR ---
RECEIVED REPORT FROM PRISON CLASSIFICATION COUNSELOR NURSE AT BEDSIDE FOR CONTINUITY OF CARE. PT IS AOX4. INTRODUCED MYSELF AND UPDATED THE BOARD. PER PRISON CLASSIFICATION COUNSELOR PT IS ON FLUID RESTRICTION 1.5L/DAY. SKIN IS INTACT. IV ON L HAND 20G NS AT 70ML/HR. PER PRISON CLASSIFICATION COUNSELOR RN, PT'S DAUGHTER REFUSED NEURO CONSULT, REFUSED KEPPRA TO BE GIVEN TO PT D/T "DON'T WANT TO MESS UP THE REGIMEN AND DOSING", REFUSED CT W/ CONTRAST. PT ALSO REFUSED AM LABS. WILL TRY AND GET ANOTHER DRAW DONE LATER. V/S IS WITHIN NORMAL RANGE. DENIES PAIN. NOTED VERY LITTLE EDEMA BLE +1. WILL CONTINUE TO MONITOR PT.
[2018-04-26 08:00] VITALS: BP 128/60
--- NOTE | 2018-04-26 08:40 | NUR ---
P/T HERE WALKING PT IN THE HALLWAYS
[2018-04-26] MEDS: levETIRAcetam 500 MG TAB PO SCH ×2 (09:00→20:26)
--- NOTE | 2018-04-26 09:05 | NUR ---
DR RENTERIA HERE TO ASSESS PT.
[2018-04-26] MEDS: BENAZEPRIL 5 MG TAB PO SCH (09:17)
[2018-04-26] MEDS: SPIRONOLACTONE 25 MG TAB PO SCH (09:17)
[2018-04-26] MEDS: ASPIRIN 81 MG TAB.CHEW PO SCH (09:18)
[2018-04-26] MEDS: TAMSULOSIN 0.4 MG CAP PO SCH (09:18)
[2018-04-26] MEDS: metFORMIN 850 MG TAB PO SCH ×2 (09:18→17:02)
[2018-04-26] MEDS: CARVEDILOL 3.125 MG TAB PO SCH ×2 (09:19→20:09)
[2018-04-26] MEDS: FUROSEMIDE 20 MG/2 ML VIAL IVP SCH (09:19)
[2018-04-26] MEDS: ISOSORBIDE MONONITRATE 30 MG TABER PO SCH (09:20)
[2018-04-26] MEDS: RANOLAZINE 500 MG TER PO SCH ×2 (09:20→20:27)
--- NOTE | 2018-04-26 09:25 | NUR ---
ADMINISTERED MORNING MEDS. PT TOLERATED WELL. ASHLEY SUAREZ, PER LONG TERM CARE PHLEBOTOMIST NURSE, DAUGHTER REFUSED MED FOR PT. PT IS W/ A NEUROLOGIST AND DOESN'T WANT THE DOSAGE MESSED WITH. WILL HOLD UNTIL FURTHER NOTICE. Addendum: 04/26/18 at 926 by Camryn Ramirez RN MD AWARE. Addendum: 04/26/18 at 926 by Camryn Ramirez RN HEP LOCKED PT WELL. FLUIDS D/C'D
[2018-04-26 09:47] LABS: ANION GAP 11.4 (8-16); CARBON DIOXIDE 25.5 mmol/L (21-32); CHLORIDE 95 mmol/L (98-107); CREATININE 0.9 mg/dL (0.7-1.3); GLUCOSE 195 mg/dL (74-106); POTASSIUM 3.9 mmol/L (3.5-5.1); SODIUM SERUM 128 mmol/L (136-145); UREA NITROGEN, BLOOD 10 mg/dL (7-18)
[2018-04-26 10:00] LABS: HEMATOCRIT 30.7 % (36-52); HEMOGLOBIN 10.1 g/dL (12.0-18.0); MEAN CORPUSCULAR HEMOGLOBIN 26 pg (27-31); MEAN CORPUSCULAR HGB CONC 33 g/dL (33-37); MEAN CORPUSCULAR VOLUME 79.9 fL (80-94); PLATELET COUNT (AUTO) 258 K/uL (140-450); RED BLOOD CELL COUNT(AUTO) 3.84 MIL/uL (4.20-6.10); RED CELL DISTRIBUTION WIDTH 15.6 % (11.6-13.7); WHITE BLOOD COUNT (AUTO) 8.7 K/uL (4.8-10.8)
--- NOTE | 2018-04-26 10:30 | NUR ---
Switch Crew Supervisor Notes: I Called Patient's Juhi Coombs at to discuss patient's status and plan of care as well a referral to hospice services. Per Patient's MD spoke to them and daughter Patricia about Hospice care and they declined hospice services and would like to take patient at home to care for him. Both thanked me for the resources and information about hospice and stated that they will talk to their daughter Patricia again and if they change their mind about hospice they will call back to these appeals writer.
[2018-04-26 11:20] LABS: LYMPHOCYTES % (MANUAL) 9 % (20-46); MONOCYTES % (MANUAL) 10 % (5-12)
[2018-04-26 12:00] VITALS: BP 101/55
[2018-04-26] MEDS: INSULIN LISPRO SLIDING SCALE 100 UNITS/ML VIAL SUBQ PRN ×3 (12:22→20:25)
--- NOTE | 2018-04-26 12:25 | NUR ---
ADMINISTERED INSULIN COVERAGE. 6 U FOR 276. PT TOLERATED WELL. PT EATING LUNCH NOW. WILL COME BACK AND REMOVE THE MALCOLM CATH. PT AWARE. FAMILY AT BEDSIDE. WILL CONTINUE TO MONITOR PT.
--- NOTE | 2018-04-26 13:30 | NUR ---
REMOVED MALCOLM CATH. EMPTIED 1450ML OF CLEAR YELLOW URINE. PT TOLERATED WELL. INSTRUCTED PT TO URINATE IN THE URINAL. FAMILY AT BEDSIDE. WILL CONTINUE TO MONITOR PT.
--- NOTE | 2018-04-26 15:15 | NUR ---
PT RESTING COMFORTABLY. SPOUSE AT BEDSIDE. NO SIGNS OF DISTRESS. WILL CONTINUE TO MONITOR PT.
[2018-04-26 16:00] VITALS: BP 97/48
--- NOTE | 2018-04-26 17:07 | NUR ---
ADMINISTERED INSULIN COVERAGE FOR BS 182, AND METFORMIN. PT TOLERATED WELL. SPOUSE AT BEDSIDE. PT DENIES ANY PAIN. NO COMPLAINTS AT THIS TIME.
--- NOTE | 2018-04-26 19:10 | NUR ---
ENDORSED PT TO THE ACTIVITY MANAGER NURSE AT BEDSIDE FOR CONTINUITY OF CARE. PT IS IN STABLE CONDITION.
--- NOTE | 2018-04-26 19:11 | NUR ---
REPORT RECEIVED FROM AM NURSE AT BEDSIDE. PT IN STABLE CONDITION. AAOX4. INTRODUCED SELF TO PT AND BOARD UPDATED. PT IS MALTESE SPEAKING ONLY. FALL RISK AND USES A URINAL. PT HAD A MALCOLM BUT WAS DC'ED AT 1330. NO URINE SINCE DC. SKIN WARM, DRY, AND INTACT WITH NO OPEN WOUNDS. IV SITE PATENT AND INTACT AND IS SL. SEIZURE PRECAUTIONS SIDE RAILS ARE PADDED. BED LOCKED IN LOW POSITION. CALL LIZ WITHIN REACH.
[2018-04-26 20:00] VITALS: BP 117/59
[2018-04-26] MEDS: INSULIN LANTUS 100 UNITS/ML 10 ML VIAL SUBQ SCH (20:24)
--- NOTE | 2018-04-26 20:25 | NUR ---
PM MEDS GIVEN. COREG HELD DUE TO DIASTOLIC PRESSURE OF 59. BS 167. 2 UNITS OF HUMALOG GIVEN. PT TOLERATED WELL.
[2018-04-26] MEDS: SIMVASTATIN 20 MG TAB PO SCH (20:26)
--- NOTE | 2018-04-26 23:00 | NUR ---
AM NURSE NOTIFIED ME OF MALCOLM BEING D/C AT 1330 ON 04/26 AND PT HAS YET TO URINATE. BLADDER SCAN WAS TAKEN AND PT HAD LESS THAN 369ML OF FLUID IN THE BLADDER. MD WAS NOTIFIED. NO CHANGE IN ORDERS. JUST MONITOR AND REPORT TO MD IF S/S OF DISTRESS OCCUR.
[2018-04-27] VITALS: BP 134/63
--- NOTE | 2018-04-27 02:00 | NUR ---
PT STATED HE FELT LIKE HIS BLOOD SUGAR IS LOW. ACCUCHECK DONE. BS 95. PUDDING GIVEN TO PT. WILL CONTINUE TO MONITOR.
[2018-04-27 04:00] VITALS: BP 132/45
--- NOTE | 2018-04-27 04:30 | NUR ---
PT REFUSED AM LABS.
--- NOTE | 2018-04-27 05:15 | NUR ---
BLADDER SCAN SHOWS 550ML WITH SLIGHT BLADDER DISTENTION. NOTIFIED. STRAIGHT CATH ORDERED. PT REFUSED. INFORMED PT IF HE STARTS TO FEEL PAIN OR DISCOMFORT TO LET ME KNOW SO WE CAN STRAIGHT CATH HIM AT A LATER TIME. WILL ENDORSE TO MORNING SHIFT IF NOT DONE BY 0700.
[2018-04-27] MEDS: BLOOD GLUCOSE MONITORING 1 DEV DEV FS SCH ×4 (05:20→20:09)
--- NOTE | 2018-04-27 07:05 | NUR ---
REPORT GIVEN TO AM NURSE. PT IN STABLE CONDITION.
--- NOTE | 2018-04-27 07:06 | NUR ---
RECEIVED REPORT FROM THE GEOSPATIAL EXTRACTOR ANALYSIS NURSE AT BEDSIDE FOR CONTINUITY OF CARE. PT IS AWAKE AND ORIENTED. INTRODUCED MYSELF AND UPDATED THE BOARD. V/S WITHIN NORMAL RANGE. DENIES PAIN. PER GEOSPATIAL EXTRACTOR ANALYSIS NURSE, NO URINE STILL. ORDER FOR STRAIGHT CATH IS IN PLACE. WILL ADMINISTER. PER PT, NO BLADDER DISTENTION, NO DISCOMFORT, NO URGE. PT IS ON FLUID RESTRICTION OF 1.5 L /DAILY. IV ON L HAND 20G SL. WILL CONTINUE TO MONITOR PT.
[2018-04-27 08:00] VITALS: BP 132/59
[2018-04-27] MEDS: SPIRONOLACTONE 25 MG TAB PO SCH (08:18)
[2018-04-27] MEDS: ASPIRIN 81 MG TAB.CHEW PO SCH (08:18)
[2018-04-27] MEDS: ISOSORBIDE MONONITRATE 30 MG TABER PO SCH (08:19)
[2018-04-27] MEDS: metFORMIN 850 MG TAB PO SCH ×2 (08:19→18:17)
[2018-04-27] MEDS: BENAZEPRIL 5 MG TAB PO SCH (08:19)
[2018-04-27] MEDS: FUROSEMIDE 20 MG/2 ML VIAL IVP SCH (08:20)
[2018-04-27] MEDS: levETIRAcetam 500 MG TAB PO SCH ×2 (08:20→20:03)
[2018-04-27] MEDS: TAMSULOSIN 0.4 MG CAP PO SCH (08:20)
[2018-04-27] MEDS: CARVEDILOL 3.125 MG TAB PO SCH ×2 (08:21→21:00)
[2018-04-27] MEDS: RANOLAZINE 500 MG TER PO SCH ×2 (08:21→20:03)
--- NOTE | 2018-04-27 08:30 | NUR ---
ADMINISTERED MORNING MEDS. HELD CARVEDILOL D/T DIASTOLIC IS LESS THAN 60, PER ORDERS. PT TOLERATED WELL. PT REFUSED THE STRAIGHT CATH. EXPLAINED TO HIM THAT HIS BLADDER IS FULL. WE NEED TO DO THE STRAIGHT CATH. PT STATES HE WENT TO THE BATHROOM THIS MORNING. I DON'T THINK THAT'S POSSIBLE D/T PT'S BEDREST, L SIDED WEAKNESS, NEEDS ASSISTANCE TO THE BATHROOM, AND THERE IS A BED ALARM. STILL REFUSED.
--- NOTE | 2018-04-27 08:35 | NUR ---
MD'S ARE ROUNDING. EXPLAINED TO THE MD. THEY WILL SPEAK WITH HIM.
--- NOTE | 2018-04-27 10:30 | NUR ---
SON AND SPOUSE CAME TO VISIT. EXPLAINED TO FAMILY THAT PT HAS BEEN REFUSING LABS, STRAIGHT CATH. SON INITIALLY SAID HE WILL TRANSLATE. THEN REQUESTED THEY SPEAK TO A SINGAPOREAN SPEAKING NURSE OR . RESIDENT CAME IN WITH BLUE PHONE. THEY DID NOT WANT TO TALK TO A PHONE. SAID IT WAS UNPROFESSIONAL. THEY WOULD PREFER A SINGAPOREAN SPEAKING NURSE. CALLED ANNETTE O/R NURSE TO COME AND TRANSLATE. THEY EXPLAINED CURRENT SITUATION. PT AGREED TO HAVE BLOOD DRAWN AND HAVE A MALCOLM CATHETER. WILL AWAIT ORDERS.
[2018-04-27 11:05] LABS: BASOPHILS % (AUTO) 0.4 % (0.0-2.0); EOSINOPHILS % (AUTO) 0.4 % (0.0-4.0); HEMATOCRIT 31.8 % (36-52); HEMOGLOBIN 10.3 g/dL (12.0-18.0); LYMPHOCYTES # (AUTO) 0.8 K/uL (2.0-11.5); LYMPHOCYTES % (AUTO) 8.4 % (20.5-51.1); MEAN CORPUSCULAR HEMOGLOBIN 26 pg (27-31); MEAN CORPUSCULAR HGB CONC 32 g/dL (33-37); MEAN CORPUSCULAR VOLUME 79.4 fL (80-94); MONOCYTES # (AUTO) 0.9 K/uL (0.8-1.0); MONOCYTES % (AUTO) 9.9 % (1.7-9.3); NEUTROPHILS # (AUTO) 7.4 K/uL (1.8-7.7); NEUTROPHILS % (AUTO) 80.9 % (42.2-75.2); PLATELET COUNT (AUTO) 271 K/uL (140-450); RED BLOOD CELL COUNT(AUTO) 4.01 MIL/uL (4.20-6.10); RED CELL DISTRIBUTION WIDTH 16.5 % (11.6-13.7); WHITE BLOOD COUNT (AUTO) 9.1 K/uL (4.8-10.8)
--- NOTE | 2018-04-27 11:20 | NUR ---
CRITICAL LAB SODIUM 123. WILL NOTIFY
[2018-04-27 11:21] LABS: ANION GAP 10.4 (8-16); CARBON DIOXIDE 26.7 mmol/L (21-32); CHLORIDE 90 mmol/L (98-107); CREATININE 0.9 mg/dL (0.7-1.3); GLUCOSE 273 mg/dL (74-106); POTASSIUM 4.1 mmol/L (3.5-5.1); UREA NITROGEN, BLOOD 9 mg/dL (7-18)
[2018-04-27 11:23] LABS: SODIUM SERUM 123 mmol/L (136-145)
--- NOTE | 2018-04-27 11:45 | NUR ---
Medical Records Administrator Notes: I Faxed to [facility], [facility] at patient's Clinical Information and MD order for Physical Therapy and DME. I Contacted Tracey at to confirm faxed information. confirmed receiving Clinical inf. and MD Order.
--- NOTE | 2018-04-27 11:55 | NUR ---
ADMINISTERED MALCOLM CATH ORDERED. EMPTIED OUT 950ML OF TRISTEN URINE FROM MALCOLM BAG. STILL EMPTING MORE. CHECKED VS AND BS. V/S WITHIN NORMAL LIMITS. BS AT 222. WILL GIVE COVERAGE. DR LEHMAN CAME BAG AND CHECKED THE MALCOLM BAG.
[2018-04-27 12:00] VITALS: BP 100/53
[2018-04-27] MEDS: INSULIN LISPRO SLIDING SCALE 100 UNITS/ML VIAL SUBQ PRN ×3 (12:09→20:12)
[2018-04-27] MEDS: SODIUM CHLORIDE 1 GM TAB PO SCH ×2 (12:29→20:03)
--- NOTE | 2018-04-27 12:48 | NUR ---
DAUGHTER JAS IS HERE. PHOSPHORIC ACID SUPERVISOR IS TALKING TO HER REGARDING HOME HEALTH, DME, IHSS. WILL CONTINUE TO MONITOR PT.
--- NOTE | 2018-04-27 13:22 | NUR ---
04/27/18 RD INITIAL ASSESSMENT COMPLETED PLEASE REFER TO NUTRITION ASSESSMENT UNDER CARE ACTIVITY FOR ESTIMATED NUTRITIONAL NEEDS. 1. CONTINUE DIET CCHO 60 TOLERATED 2. PROVIDE NUTRITION EDUCATION ON THE FOLLOW UP VISIT APPROPRIATE. 3. RD TO FOLLOW-UP 3-5 DAYS, MODERATE RISK KARINE TRAN, RD
--- NOTE | 2018-04-27 15:20 | NUR ---
PT SLEEPING. NO SIGNS OF DISTRESS. WILL CONTINUE TO MONITOR PT.
[2018-04-27 16:00] VITALS: BP 108/45
--- NOTE | 2018-04-27 18:23 | NUR ---
SCHEDULED MEDS GIVEN LATE. PT EATING DINNER. FAMILY AT BEDSIDE. PT TOLERATED WELL. WILL CONTINUE TO MONITOR PT.
[2018-04-27 18:37] LABS: ANION GAP 13.1 (8-16); CARBON DIOXIDE 22.9 mmol/L (21-32); CHLORIDE 94 mmol/L (98-107); CREATININE 0.9 mg/dL (0.7-1.3); GLUCOSE 147 mg/dL (74-106); SODIUM SERUM 126 mmol/L (136-145); UREA NITROGEN, BLOOD 12 mg/dL (7-18)
--- NOTE | 2018-04-27 19:22 | NUR ---
ENDORSED PT TO THE FLOORHAND NURSE AT BEDSIDE FOR CONTINUITY OF CARE. PT IS IN STABLE CONDITION.
--- NOTE | 2018-04-27 19:23 | NUR ---
REPORT RECEIVED FROM AM NURSE AT BEDSIDE. PT IN STABLE CONDITION. AAOX2. INTRODUCED SELF TO PT AND FAMILY. BOARD UPDATED. IV SITE PATENT AND INTACT. SKIN WARM, DRY, AND INTACT WITH NO OPEN WOUNDS. ENDORSED FROM AM SHIFT THAT MEDICAL RECORDS AND RADIOLOGY INFORMATION FROM [place] WAS FAXED TO GIVE TO TO COMPARE WITH OUR RECORDS. BED LOCKED IN LOW POSITION. CALL LIZ WITHIN REACH. WILL CONTINUE TO MONITOR. Addendum: 04/28/18 at 0302 by Ashish Rain RN PT HAS MALCOLM DRAINING DARK TRISTEN URINE.
[2018-04-27 20:00] VITALS: BP 115/60
--- NOTE | 2018-04-27 20:00 | NUR ---
PM MEDS GIVEN. LANTUS GIVEN. BS 228 AND 4 UNITS OF HUMALOG GIVEN. PT TOLERATED WELL. Addendum: 04/28/18 at 0254 by Ashish Rain RN COREG HELD DUE TO A DECREASED BP. DBP AT 60.
[2018-04-27] MEDS: SIMVASTATIN 20 MG TAB PO SCH (20:04)
[2018-04-27] MEDS: INSULIN LANTUS 100 UNITS/ML 10 ML VIAL SUBQ SCH (20:12)
[2018-04-28] VITALS: BP 105/48
--- NOTE | 2018-04-28 01:00 | NUR ---
PT SLEEPING COMFORTABLY LEFT LATERAL. NO S/S OF DISTRESS.
[2018-04-28 04:00] VITALS: BP 136/54
[2018-04-28] MEDS: BLOOD GLUCOSE MONITORING 1 DEV DEV FS SCH ×4 (05:35→21:01)
--- NOTE | 2018-04-28 05:35 | NUR ---
BS 125. NO INSULIN COVERAGE NEEDED.
--- NOTE | 2018-04-28 07:25 | NUR ---
REPORT GIVEN TO AM NURSE. PT IN STABLE CONDITION.
--- NOTE | 2018-04-28 07:26 | NUR ---
RECEIVED PT SITTING ON BED, AAOX4. NO SOB NOTED. NO C/O PAIN AT THIS TIME. IV TO LT HAND PATENT AND INTACT. CHEST CLEAR. ABDOMEN SOFT, BOWEL SOUNDS PRESENT. WITH MALCOLM DRAINING MODERATE AMOUNTS OF DARK RED URINE. + 1 EDEMA NOTED ON BLE. INSTRUCTED PT TO CALL FOR ASSISTANCE, CALL LIGHT WITHIN REACH, PT VERBALIZED UNDERSTANDING. Addendum: 04/28/18 at 1200 by Elke Acosta RN PT HAS PERIODS OF FORGETFULNESS, REORIENTATION PROVIDED. PT VERBALIZED UNDERSTANDING.
[2018-04-28] MEDS ORDERED: FINA5TAB5 PO (07:35)
[2018-04-28 07:41] LABS: BASOPHILS % (AUTO) 0.4 % (0.0-2.0); EOSINOPHILS % (AUTO) 0.6 % (0.0-4.0); HEMATOCRIT 27.9 % (36-52); HEMOGLOBIN 9.3 g/dL (12.0-18.0); LYMPHOCYTES # (AUTO) 0.6 K/uL (2.0-11.5); LYMPHOCYTES % (AUTO) 7.6 % (20.5-51.1); MEAN CORPUSCULAR HEMOGLOBIN 26 pg (27-31); MEAN CORPUSCULAR HGB CONC 33 g/dL (33-37); MONOCYTES # (AUTO) 0.8 K/uL (0.8-1.0); MONOCYTES % (AUTO) 10.7 % (1.7-9.3); NEUTROPHILS # (AUTO) 6.1 K/uL (1.8-7.7); NEUTROPHILS % (AUTO) 80.7 % (42.2-75.2); PLATELET COUNT (AUTO) 237 K/uL (140-450); RED BLOOD CELL COUNT(AUTO) 3.53 MIL/uL (4.20-6.10); RED CELL DISTRIBUTION WIDTH 16.6 % (11.6-13.7); WHITE BLOOD COUNT (AUTO) 7.5 K/uL (4.8-10.8)
[2018-04-28 07:59] LABS: ANION GAP 11.6 (8-16); CARBON DIOXIDE 25.5 mmol/L (21-32); CHLORIDE 94 mmol/L (98-107); CREATININE 0.7 mg/dL (0.7-1.3); GLUCOSE 110 mg/dL (74-106); POTASSIUM 4.1 mmol/L (3.5-5.1); SODIUM SERUM 127 mmol/L (136-145); UREA NITROGEN, BLOOD 9 mg/dL (7-18)
[2018-04-28 08:00] VITALS: BP 116/62
[2018-04-28] MEDS: BENAZEPRIL 5 MG TAB PO SCH (09:00)
[2018-04-28] MEDS: SODIUM CHLORIDE 1 GM TAB PO SCH ×2 (09:48→18:03)
[2018-04-28] MEDS: RANOLAZINE 500 MG TER PO SCH ×2 (09:48→20:27)
[2018-04-28] MEDS: LACTOBACILLUS RHAMNOSUS GG 1 EACH CAP PO SCH (09:49)
[2018-04-28] MEDS: TAMSULOSIN 0.4 MG CAP PO SCH (09:49)
[2018-04-28] MEDS: ASPIRIN 81 MG TAB.CHEW PO SCH (09:49)
[2018-04-28] MEDS: levETIRAcetam 500 MG TAB PO SCH (09:49)
[2018-04-28] MEDS: metFORMIN 850 MG TAB PO SCH ×2 (09:49→18:03)
[2018-04-28] MEDS: FINASTERIDE 5 MG TAB PO SCH (09:50)
[2018-04-28] MEDS: ISOSORBIDE MONONITRATE 30 MG TABER PO SCH (09:50)
[2018-04-28] MEDS: CARVEDILOL 3.125 MG TAB PO SCH ×2 (09:50→20:26)
[2018-04-28] MEDS: SPIRONOLACTONE 25 MG TAB PO SCH (09:50)
--- NOTE | 2018-04-28 09:52 | NUR ---
LOTENSIN NOT GIVEN, PT ALREADY ON COREG AND ALDACTONE. WILL MONITOR BP.
[2018-04-28] MEDS ORDERED: FERROUS SULFATE 325 MG TABEC PO SCH (10:30)
[2018-04-28] MEDS ORDERED: ASCORBIC ACID 500 MG TAB PO SCH (10:30)
[2018-04-28 12:00] VITALS: BP 113/55
[2018-04-28] MEDS ORDERED: SAL1 PO (13:01)
[2018-04-28] MEDS: INSULIN LISPRO SLIDING SCALE 100 UNITS/ML VIAL SUBQ PRN ×3 (13:13→20:57)
[2018-04-28] MEDS: FERROUS SULFATE 325 MG TABEC PO SCH (13:15)
[2018-04-28] MEDS: ASCORBIC ACID 500 MG TAB PO SCH (13:15)
[2018-04-28 14:22] LABS: ANION GAP 10.1 (8-16); CARBON DIOXIDE 26.1 mmol/L (21-32); CHLORIDE 93 mmol/L (98-107); CREATININE 0.8 mg/dL (0.7-1.3); GLUCOSE 234 mg/dL (74-106); POTASSIUM 4.2 mmol/L (3.5-5.1); SODIUM SERUM 125 mmol/L (136-145); UREA NITROGEN, BLOOD 8 mg/dL (7-18)
--- NOTE | 2018-04-28 15:15 | NUR ---
DISCHARGE ORDER CANCELLED DUE TO DECREASED NA LEVELS. PT AND FAMILY NOTIFIED, VERBALIZED UNDERSTANDING.
--- NOTE | 2018-04-28 15:25 | NUR ---
PHYSICAL THERAPY CO-SIGN The Physical Therapy Progress Notes documented by Supply Chain Associate have been reviewed. 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
[2018-04-28 16:00] VITALS: BP 106/56
--- NOTE | 2018-04-28 18:00 | NUR ---
PT CONSUMED 75% ON DINNER SERVED. FOOD TOLERATED WELL. FLUID RESTRICTION MAINTAINED.
--- NOTE | 2018-04-28 19:09 | NUR ---
PT AWAKE, TALKING TO FAMILY AT THE BEDSIDE. . NO SOB NOTED. NO COMPLAINTS MADE. WILL ENDORSE TO NEXT SHIFT NURSE FOR CONTINUITY OF CARE.
--- NOTE | 2018-04-28 19:10 | NUR ---
RECEIVED PATIENT AWAKE LYING ON BED COMORAN SPEAKING. FALL PRECAUTION APPLIED. EXPLAINED PLAN OF CARE THROUGH PATIENT TRANSPORT ORDERLY. CALL LIGHT WITHIN REACH.
[2018-04-28 19:15] LABS: ANION GAP 13.6 (8-16); CARBON DIOXIDE 23.8 mmol/L (21-32); CHLORIDE 93 mmol/L (98-107); CREATININE 0.8 mg/dL (0.7-1.3); GLUCOSE 193 mg/dL (74-106); POTASSIUM 4.4 mmol/L (3.5-5.1); SODIUM SERUM 126 mmol/L (136-145); UREA NITROGEN, BLOOD 9 mg/dL (7-18)
[2018-04-28 20:00] VITALS: BP 112/50
[2018-04-28] MEDS: SIMVASTATIN 20 MG TAB PO SCH (20:27)
[2018-04-28] MEDS: INSULIN LANTUS 100 UNITS/ML 10 ML VIAL SUBQ SCH (20:55)
--- NOTE | 2018-04-28 21:00 | NUR ---
MEDICATION GIVEN AND TOLERATED WELL. PATIENT SEEN LYING SEMI-FOWLERS POSITION. CALL LIGHT WITHIN REACH. NO S/S OF DISTRESS NOTED AT THIS TIME. WILL CONTINUE TO MONITOR.
[2018-04-29] VITALS: BP 139/70
--- NOTE | 2018-04-29 | NUR ---
V/S TAKEN AND RECORDED. V/S WNL. PATIENT ASLEEP BUT EASILY AROUSABLE. FALL PRECAUTION IMPLEMENTED. NO S/S DISTRESS NOTED. CALL LIGHT WITHIN REACH. WILL CONTINUE TO MONITOR.
--- NOTE | 2018-04-29 03:57 | NUR ---
CHECKED PATIENT ASLEEP COMFORTABLY ON BED. FALL PRECAUTION APPLIED. CALL LIGHT WITHIN REACH. WILL CONTINUE TO MONITOR.
[2018-04-29 04:00] VITALS: BP 134/63
--- NOTE | 2018-04-29 05:00 | NUR ---
PATIENT ASSISTED TO THE BATHROOM FOR HAVE BOWEL MOVEMENT, EMPTY THE FC AND DISCARD 1000CC URINE. PATIENT ABLE TO AMBULATE WITH ASSIST. CLEAN THE BED AND ASSISTED PATIENT BACK TO BED . CALL LIGHT WITHIN REACH. FALL PRECAUTION IMPLEMENTED.
--- NOTE | 2018-04-29 07:10 | NUR ---
ENDORSED PATIENT TO AM SHIFT NURSE AT BEDSIDE FOR CONTINUITY OF CARE. PATIENT IN STABLE CONDITION.
--- NOTE | 2018-04-29 07:30 | NUR ---
RECEIVED PT ON BED, AAOX4 WITH PERIODS OF FORGETFULNESS, REORIENTATION PROVIDED. NO SOB NOTED. NO C/O PAIN AT THIS TIME. IV TO LT HAND PATENT AND INTACT. CHEST CLEAR. ABDOMEN SOFT, BOWEL SOUNDS PRESENT. WITH MALCOLM DRAINING MODERATE AMOUNTS OF DARK RED URINE. + 1 EDEMA NOTED ON BLE, ELEVATED WITH PILLOWS. INSTRUCTED PT TO CALL FOR ASSISTANCE, CALL LIGHT WITHIN REACH, PT VERBALIZED UNDERSTANDING.
[2018-04-29] MEDS: BLOOD GLUCOSE MONITORING 1 DEV DEV FS SCH ×2 (07:34→12:23)
[2018-04-29 07:57] VITALS: BP 129/48
[2018-04-29] MEDS ORDERED: SPIRONOLACTONE 25 MG TAB PO SCH (09:00)
[2018-04-29] MEDS: BENAZEPRIL 5 MG TAB PO SCH (09:00)
[2018-04-29] MEDS: SODIUM CHLORIDE 1 GM TAB PO SCH ×2 (09:07→12:24)
[2018-04-29] MEDS: FERROUS SULFATE 325 MG TABEC PO SCH (09:07)
[2018-04-29] MEDS: CARVEDILOL 3.125 MG TAB PO SCH (09:07)
[2018-04-29] MEDS: ISOSORBIDE MONONITRATE 30 MG TABER PO SCH (09:07)
[2018-04-29] MEDS: metFORMIN 850 MG TAB PO SCH (09:07)
[2018-04-29] MEDS: FINASTERIDE 5 MG TAB PO SCH (09:07)
[2018-04-29] MEDS: RANOLAZINE 500 MG TER PO SCH (09:08)
[2018-04-29] MEDS: LACTOBACILLUS RHAMNOSUS GG 1 EACH CAP PO SCH (09:08)
[2018-04-29] MEDS: ASCORBIC ACID 500 MG TAB PO SCH (09:08)
[2018-04-29] MEDS: ASPIRIN 81 MG TAB.CHEW PO SCH (09:08)
[2018-04-29] MEDS: TAMSULOSIN 0.4 MG CAP PO SCH (09:23)
--- NOTE | 2018-04-29 09:32 | NUR ---
LOTENSIN NOT GIVEN, LOW DIASTOLIC BP.
[2018-04-29 09:34] LABS: BASOPHILS % (AUTO) 0.6 % (0.0-2.0); EOSINOPHILS % (AUTO) 0.3 % (0.0-4.0); HEMATOCRIT 32.3 % (36-52); HEMOGLOBIN 10.5 g/dL (12.0-18.0); LYMPHOCYTES # (AUTO) 0.7 K/uL (2.0-11.5); LYMPHOCYTES % (AUTO) 8.6 % (20.5-51.1); MEAN CORPUSCULAR HEMOGLOBIN 26 pg (27-31); MEAN CORPUSCULAR HGB CONC 33 g/dL (33-37); MONOCYTES # (AUTO) 0.7 K/uL (0.8-1.0); MONOCYTES % (AUTO) 8.4 % (1.7-9.3); NEUTROPHILS # (AUTO) 7.1 K/uL (1.8-7.7); NEUTROPHILS % (AUTO) 82.1 % (42.2-75.2); PLATELET COUNT (AUTO) 278 K/uL (140-450); RED BLOOD CELL COUNT(AUTO) 4.04 MIL/uL (4.20-6.10); RED CELL DISTRIBUTION WIDTH 16.8 % (11.6-13.7); WHITE BLOOD COUNT (AUTO) 8.6 K/uL (4.8-10.8)
[2018-04-29 10:16] LABS: ANION GAP 13.5 (8-16); CARBON DIOXIDE 25.1 mmol/L (21-32); CHLORIDE 91 mmol/L (98-107); CREATININE 0.9 mg/dL (0.7-1.3); GLUCOSE 312 mg/dL (74-106); POTASSIUM 4.6 mmol/L (3.5-5.1); SODIUM SERUM 125 mmol/L (136-145); UREA NITROGEN, BLOOD 8 mg/dL (7-18)
[2018-04-29 10:17] LABS: MAGNESIUM 1.4 mg/dL (1.8-2.4); PHOSPHORUS 3.5 mg/dL (2.5-4.9)
[2018-04-29] MEDS ORDERED: MAG SULF 2000 MG/WATER PREMIX 50 ML IV ONE (10:55)
[2018-04-29 12:00] VITALS: BP 123/56
--- NOTE | 2018-04-29 12:15 | NUR ---
PT TOLERATED BREAKFAST AND LUNCH. NO N&V NOTED.
[2018-04-29] MEDS: INSULIN LISPRO SLIDING SCALE 100 UNITS/ML VIAL SUBQ PRN (12:29)
--- NOTE | 2018-04-29 13:30 | NUR ---
MAG DEACON NAILS COMPLETED.
--- NOTE | 2018-04-29 15:45 | NUR ---
DISCHARGE INSTRUCTIONS AND PRESCRIPTIONS GIVEN TO PT AND PT'S DAUGHTER BOTH WHICH VERBALIZED FULL UNDERSTANDING OF THE INSTRUCTIONS GIVEN AND THE NEED TO FOLLOW UP WITH PCP AND UROLOGIST IN 3 DAYS. ARM BANDS AND IV REMOVED, CANNULA TIP INTACT. PT IS GOING HOME WITH MALCOLM CATHETER.
--- NOTE | 2018-04-29 15:50 | NUR ---
PT WHEELED OUT TO THE PARKING LOT IN STABLE CONDITION. NO SOB NOTED. NO COMPLAINTS MADE. MALCOLM CATHETER PATENT AND IN PLACE. PT IS D/C HOME WITH DAUGHTER.
== END 2018-04-29 15:50 | disposition home or self-care (01) | DRG 291 ==
LOC: MED 22:50 → MMU 04-24 02:25 → MTU 04-24 02:55
PROVIDERS: ADMIT General Practice; ATTEND General Practice
DX: I11.0 Hypertensive heart disease with heart failure (principal); G93.41 Metabolic encephalopathy; E22.2 Syndrome of inappropriate secretion of antidiuretic hormone; I50.43 Acute on chronic combined systolic (congestive) and diastolic (congestive) heart failure; I42.0 Dilated cardiomyopathy; E11.65 Type 2 diabetes mellitus with hyperglycemia; E83.42 Hypomagnesemia; E87.8 Other disorders of electrolyte and fluid balance, not elsewhere classified; D50.9 Iron deficiency anemia, unspecified; K70.30 Alcoholic cirrhosis of liver without ascites; H05.9 Unspecified disorder of orbit; N28.89 Other specified disorders of kidney and ureter; N20.0 Calculus of kidney; N40.1 Benign prostatic hyperplasia with lower urinary tract symptoms; R33.8 Other retention of urine; I25.10 Atherosclerotic heart disease of native coronary artery without angina pectoris; Z79.82 Long term (current) use of aspirin; Z79.899 Other long term (current) drug therapy; Z85.46 Personal history of malignant neoplasm of prostate; Z86.73 Personal history of transient ischemic attack (TIA), and cerebral infarction without residual deficits; Z87.891 Personal history of nicotine dependence; I25.2 Old myocardial infarction; Z79.84 Long term (current) use of oral hypoglycemic drugs; Z95.810 Presence of automatic (implantable) cardiac defibrillator; Z98.61 Coronary angioplasty status; Z91.14 Patient's other noncompliance with medication regimen
CPT/HCPCS: 36415; 51702; 70450; 71045; 76700; 80048; 80076; 81001; 82150; 82607; 82728; 82746; 82948; 83036; 83540; 83690; 83735; 83880; 83930; 83935; 84100; 84134; 84300; 84436; 84439; 84443; 84479; 84484; 85025; 85045; 85610; 85730; 87081; 93005; 93880; 93925; 93970; 96360; 97110; 97116; 97140; 97161-GP; 97530; 99285; C1758; J0696; J1815; J1940; J3475; J7030; J7060; Q0092

== ENCOUNTER 2018-06-29 06:45 | Emergency (ER) | payer OTHER ==
[~2018-06-29] VITALS: Ht 165.1 cm; Wt 65.8 kg
[~2018-06-29 06:45] MED LIST changes: +CARV3.12 PO; -CARV6.25 PO; +FINA5TAB5 PO; +FURO-570 PO; +INSU-1331 SC; +NITR0.4T2 SL; +SAL1 PO; +SPIR25TA PO; +TAMS0.4C96 PO; -TERA5CAP8 PO
--- NOTE | 2018-06-29 06:45 | NUR ---
PT NIKI ALS. TAKEN TO BED 4
[2018-06-29 06:50] VITALS: BP 125/65
--- NOTE | 2018-06-29 06:52 | NUR ---
FIRST CONTACT WITH PATIENT: PATIENT NIKI FROM HOME, C/O ALOC, SECOND TO LOW BLOOD SUGAR. PER EMS FAMILY CALLED MELVIN Choudhury ON SCENE STATES PATIENTS BS WAS 31 MG/DL. PATIENT ALOC, NON RESPONDING APPROPRIATELY. PATIENT GCS (12) E4, M5, V3. PER EMS FIRE GAVE D10 ENROUTE, BS WENT TO 330 MG/DL. PATIENT BS IS 138 MG/DL NOW. PER FAMILY, PATIENT HAS NO BEEN EATING MUCH AND PATIENT IS USING INSULIN (LEVEMIR). IV EST BY FIRE, 20G TO LAC. 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 PATIENT ABDOMEN IS DISTENDED, FIRM, NON TENDER TO PALP. PER FAMILY PATIENT HAS BEEN SEEN HERE AT [facility], AND CARTWRIGHT FOR DISTENTION AND FAMILY IS STILL UNCLEAR OF REASON. PATIENT BREATHING IS EVEN AND UNLABOR, NO ACUTE DISTRESS NOTED. PATIENT ALSO IS NOTED TO HAVE LEFT SIDED WEAKNESS, S/P CVA 1997. PATIENT ALSO ARRIVED WITH URINARY LEG BAG INPLACED BY PATIENTS UROLOGIST 06/11/18. FAMILY IS AT BEDSIDE, PATIENT CHANGED INTO HOSPITAL GOWN. CONNECTED TO . BED IN LOWEST POSITION, SIDE RAILS UP X FOR SAFETY. DR SHARP MADE AWARE OF PATIENT'S STATUS. WILL CONTINUE TO MONITOR CLOSELY
--- NOTE | 2018-06-29 07:15 | NUR ---
DR HARRELL AT BEDSIDE
--- NOTE | 2018-06-29 07:21 | NUR ---
REPORT GIVEN TO SERA DATA PROCESSING CONSULTANT OF CARE AT THIS TIME
--- NOTE | 2018-06-29 07:41 | NUR ---
Patient discharged with v/s stable. Written and verbal after care instructions given and explained. Patient alert, oriented and verbalized understanding of instructions. Wheel Chair Assisted with to car. All questions addressed prior to discharge. ID band removed. Patient advised to follow up with PMD. Rx of CIPRO given. Patient educated on indication of medication including possible reaction and side effects. Opportunity to ask questions provided and answered. ENCOURAGED FAMILY TO HELP WITH AIDING PT EAT FULL BREAKFAST MEAL
[2018-06-29 07:42] VITALS: BP 123/71
== END 2018-06-29 07:41 | disposition home or self-care (01) ==
LOC: MED 06:45
DX: E11.649 Type 2 diabetes mellitus with hypoglycemia without coma (principal); N39.0 Urinary tract infection, site not specified; I10 Essential (primary) hypertension; Z79.4 Long term (current) use of insulin; Z79.899 Other long term (current) drug therapy; Z79.82 Long term (current) use of aspirin; Z86.73 Personal history of transient ischemic attack (TIA), and cerebral infarction without residual deficits
CPT/HCPCS: 81002; 82948; 87086; 87186; 99283

== ENCOUNTER 2018-07-04 01:20 | Inpatient (IN) | payer OTHER ==
[2018-07-04] VITALS (7 sets, daily range): BP systolic 96–107; BP diastolic 46–67
[~2018-07-04] VITALS: Ht 162.6 cm; Wt 65.8 kg
--- NOTE | 2018-07-04 01:23 | NUR ---
PT TAKEN TO BED 6
--- NOTE | 2018-07-04 01:40 | NUR ---
Dr. Vargas evaluating patient at bedside.
[2018-07-04] MEDS ORDERED: NACL 0.9% 1,000 ML IV SCH (01:45)
[2018-07-04] MEDS ORDERED: KETOROLAC 30 MG/ML VIAL IVP ONE (01:45)
--- NOTE | 2018-07-04 01:45 | NUR ---
BIB FAMILY. PT PRESENTS TO ED WITH CASTREJON AND GENERALIZED BODY ACHES X2 DAYS. VSS AT THIS TIME. TREATED 3 DAYS AGO FOR UTI. PT CONTINUING ANTIBIOTICS. POSITIONED IN BED FOR COMFORT. FAMILY AT BEDSIDE. SIDE RAILS UP X2. ER MD AWARE. CONTINUE TO MONITOR.
[2018-07-04 02:19] LABS: HEMATOCRIT 31.3 % (36-52); HEMOGLOBIN 10.3 g/dL (12.0-18.0); MEAN CORPUSCULAR HEMOGLOBIN 26 pg (27-31); MEAN CORPUSCULAR HGB CONC 33 g/dL (33-37); PLATELET COUNT (AUTO) 164 K/uL (140-450); RED BLOOD CELL COUNT(AUTO) 4.02 MIL/uL (4.20-6.10); RED CELL DISTRIBUTION WIDTH 16.7 % (11.6-13.7); WHITE BLOOD COUNT (AUTO) 17.7 K/uL (4.8-10.8)
[2018-07-04 02:20] LABS: BASOPHILS % (AUTO) 0.1 % (0.0-2.0); EOSINOPHILS % (AUTO) 0.2 % (0.0-4.0); LYMPHOCYTES # (AUTO) 0.5 K/uL (2.0-11.5); LYMPHOCYTES % (AUTO) 2.8 % (20.5-51.1); MONOCYTES # (AUTO) 0.4 K/uL (0.8-1.0); NEUTROPHILS # (AUTO) 16.8 K/uL (1.8-7.7); NEUTROPHILS % (AUTO) 94.9 % (42.2-75.2)
[2018-07-04 02:25] LABS: PROTHROMBIN TIME 10.9 secs (10.8-13.4)
[2018-07-04 02:27] LABS: ALBUMIN 1.8 g/dL (3.4-5.0); ANION GAP 12.1 (8-16); ASPARTATE AMINOTRANSFERASE 23 U/L (15-37); CARBON DIOXIDE 20.5 mmol/L (21-32); CHLORIDE 91 mmol/L (98-107); GLUCOSE 171 mg/dL (74-106); POTASSIUM 4.6 mmol/L (3.5-5.1); TOTAL BILIRUBIN 0.6 mg/dL (0.0-1.0); UREA NITROGEN, BLOOD 44 mg/dL (7-18)
[2018-07-04 02:43] LABS: SODIUM SERUM 119 mmol/L (136-145)
--- NOTE | 2018-07-04 03:00 | NUR ---
PT RETURN FROM CT
[2018-07-04] MEDS ORDERED: cefTRIAXone 1,000 MG VIAL ONE (03:20)
[2018-07-04] MEDS ORDERED: ONDANSETRON 4 MG/2 ML VIAL IM/IVP PRN (03:40)
[2018-07-04] MEDS ORDERED: ACETAMINOPHEN 325 MG TAB PO PRN (03:40)
[2018-07-04] MEDS ORDERED: DOCUSATE SODIUM 100 MG GELCAP PO PRN (03:40)
[2018-07-04] MEDS ORDERED: HYDROcodone/APAP 5/325 MG 1 TAB TAB PO PRN (03:40)
[2018-07-04] MEDS ORDERED: MORPHINE SULFATE 2 MG/ML SYR IVP PRN (03:40)
[2018-07-04] MEDS ORDERED: ZOLPIDEM 5 MG TAB PO PRN (03:40)
[2018-07-04] MEDS ORDERED: LORazepam 2 MG/ML VIAL IM/IVP PRN (03:40)
[2018-07-04] MEDS ORDERED: NACL 0.9% 1,000 ML IV ONE (03:45)
[2018-07-04] MEDS ORDERED: DEXTROSE 50% 50 ML SYR IVP PRN (03:50)
[2018-07-04] MEDS ORDERED: FUROSEMIDE 40 MG/4 ML VIAL IVP SCH (04:00)
--- NOTE | 2018-07-04 04:10 | NUR ---
PT ARRIVED FROM ER IN STABLE CONDITION. BEDSIDE REPORT RECEIVED FROM ER NURSE YADI MADSEN. TRANSFERRED PATIENT TO BED. PATIENT IS ON ROOM AIR. NO SOB. WEAKNESS ON LEFT SIDE NOTED. IV ON LEFT AC 22 G PATENT AND INTACT SL. MALCOLM IN PLACE DRAINING YELLOW URINE. MALCOLM BAG CHANGED. SCAB ON RIGHT ARM NOTED.PICTURE WAS TAKEN. MRSA SWAB TAKEN. ORIENTED PATIENT TO ROOM, BED AND CALL LIGHT. INITIAL ASSESSMENT DONE ALL SAFETY PRECAUTION IN PLACE. WILL CONTINUE TO MONITOR.
[2018-07-04] MEDS ORDERED: NITROGLYCERIN 0.4 MG TAB SL PRN (04:15)
--- NOTE | 2018-07-04 04:20 | NUR ---
REPORT AND CARE TRANSFERED TO [facility] ROOM 121B. PT TRANSFERED VIA GURNEY WITH VSS.
--- NOTE | 2018-07-04 04:41 | NUR ---
DUE MEDICATION LASIX NOT GIVEN D/T PATIENTS B/P OF 100/55. DR VALENTIN NOTIFIED. DR MADE AWARE PT IS NO LONGER TAKING FINASTERIDE OR TAMSULOSIN PER FAMILY. PT STABLE. NO DISTRESS NOTED. WILL CONTINUE TO MONITOR.
[2018-07-04] MEDS: BLOOD GLUCOSE MONITORING 1 DEV DEV FS SCH ×4 (06:26→20:43)
--- NOTE | 2018-07-04 06:27 | NUR ---
PT BLOOD SUGAR N66, ORANGE JUICE GIVEN, PT RESTING, NO DISTRESS NOTED, CALL LIGHT WITHIN REACH, WILL CONTINUE TO MONITOR.
--- NOTE | 2018-07-04 07:25 | NUR ---
ENDORSED PT TO DAY SHIFT NURSE KY RN, PT STABLE, NO DISTRESS NOTED, CALL LIGHT WITHIN REACH.
--- NOTE | 2018-07-04 07:26 | NUR ---
BEDSIDE REPORT RECEIVED FROM SUPERVISING EDITOR TRAILER NURSE FOR CONTINUITY OF CARE. PATIENT IS ON ROOM AIR. NO SOB. PATIENT DENIES PAIN. WEAKNESS ON LEFT SIDE NOTED. IV ON LEFT AC 22 G PATENT AND INTACT, INFUSING IVF WELL. DOCTORS IN TO DO THEIR ROUNDS. IVF DECREASED TO 50 ML/HR. MALCOLM IN PLACE DRAINING DARK YELLOW URINE. SCAB ON RIGHT ARM NOTED. UPDATED BOARD. SAFETY PRECAUTIONS IN PLACE. BED ALARM ON, BED IN LOWEST POSITION, CALL LIGHT WITHIN REACH. WILL CONTINUE TO MONITOR PATIENT.
[2018-07-04] MEDS: NACL 0.9% 1,000 ML IV SCH ×2 (07:30→21:15)
[2018-07-04] MEDS ORDERED: MAG SULF 2000 MG/WATER PREMIX 50 ML IV ONE (08:00)
--- NOTE | 2018-07-04 08:07 | NUR ---
PHYSICAL THERAPY IN TO SEE THE PATIENT. WILL WAIT FOR THEIR EVALUATION.
--- NOTE | 2018-07-04 08:30 | NUR ---
INSPECTOR WATER POLLUTION CONTROL IN TO DO US OF ABDOMINAL COMPLETE. WILL WAIT FOR RESULTS. URINE SAMPLE ALSO OBTAINED AND GIVEN TO ICE PULLER, MELISA, FOR UA. WILL WAIT FOR RESULTS.
--- NOTE | 2018-07-04 08:40 | NUR ---
PATIENT HAS BEEN SCREENED AND CATEGORIZED HIGH NUTRITION RISK. PATIENT WILL BE SEEN WITHIN 1-2 DAYS OF ADMISSION. 07/04/18 07/05/[address]
[2018-07-04] MEDS ORDERED: [UNRECOGNIZED DRUG - OTHER] PO SCH (09:00)
[2018-07-04] MEDS ORDERED: METFORMIN HCL PO SCH (09:00)
[2018-07-04] MEDS ORDERED: TAMSULOSIN 0.4 MG CAP PO SCH (09:00)
[2018-07-04] MEDS ORDERED: RANOLAZINE 500 MG PO SCH (09:00)
[2018-07-04] MEDS ORDERED: FINASTERIDE 5 MG TAB PO SCH (09:00)
[2018-07-04] MEDS ORDERED: SITAGLIPTIN PHOS PO SCH (09:00)
[2018-07-04 09:13] LABS: HEMATOCRIT 33.8 % (36-52); HEMOGLOBIN 10.8 g/dL (12.0-18.0); MEAN CORPUSCULAR HEMOGLOBIN 25 pg (27-31); MEAN CORPUSCULAR HGB CONC 32 g/dL (33-37); MEAN CORPUSCULAR VOLUME 77.3 fL (80-94); PLATELET COUNT (AUTO) 136 K/uL (140-450); RED BLOOD CELL COUNT(AUTO) 4.37 MIL/uL (4.20-6.10); RED CELL DISTRIBUTION WIDTH 17.8 % (11.6-13.7); WHITE BLOOD COUNT (AUTO) 19.1 K/uL (4.8-10.8)
--- NOTE | 2018-07-04 09:15 | NUR ---
SAPNA FROM [facility] CALLED. UPDATED HER ABOUT PATIENT'S STATUS AND PLAN OF CARE. SHE VERBALIZED UNDERSTANDING.
[2018-07-04 09:27] LABS: LYMPHOCYTES % (MANUAL) 3 % (20-46); MONOCYTES % (MANUAL) 4 % (5-12)
[2018-07-04 09:40] LABS: ANION GAP 11.4 (8-16); CHLORIDE 93 mmol/L (98-107); CREATININE 2.1 mg/dL (0.7-1.3); GLUCOSE 108 mg/dL (74-106); POTASSIUM 4.4 mmol/L (3.5-5.1); UREA NITROGEN, BLOOD 45 mg/dL (7-18)
[2018-07-04 09:57] LABS: SODIUM SERUM 120 mmol/L (136-145)
[2018-07-04 09:58] LABS: CHOL/HDL RATIO 6.1 (1-4.5); MAGNESIUM 1.8 mg/dL (1.8-2.4); PHOSPHORUS 4.1 mg/dL (2.5-4.9); THYROID STIMULATING HORMONE 1.84 uIU/mL (0.34-3.74)
--- NOTE | 2018-07-04 09:58 | NUR ---
DR. SAUCEDA IN TO SEE THE PATIENT. LAB CALLED, PATIENT'S SODIUM LEVEL AT 120, DR. SAUCEDA AWARE. NEW ORDERS IN. WILL CONTINUE TO MONITOR PATIENT.
--- NOTE | 2018-07-04 10:10 | NUR ---
LAB CALLED, LACTIC ACID 5.0. DR. CONN AWARE. NEW ORDERS IN. WILL CONTINUE TO MONITOR PATIENT.
[2018-07-04] MEDS: BENAZEPRIL 5 MG TAB PO SCH (10:45)
[2018-07-04] MEDS: FUROSEMIDE 40 MG/4 ML VIAL IVP SCH (10:45)
[2018-07-04] MEDS: ISOSORBIDE MONONITRATE 30 MG TABER PO SCH (10:45)
[2018-07-04] MEDS: CARVEDILOL 3.125 MG TAB PO SCH ×2 (10:45→20:43)
[2018-07-04] MEDS: SODIUM CHLORIDE 1 GM TAB PO SCH ×2 (10:45→20:41)
[2018-07-04] MEDS: LACTOBACILLUS RHAMNOSUS GG 1 EACH CAP PO SCH (10:45)
--- NOTE | 2018-07-04 10:45 | NUR ---
BP 97/[address] INMAN OF PATIENT'S BLOOD PRESSURE. PER DOCTORS ORDERS, HOLDING BLOOD PRESSURE MEDICATIONS AT THIS TIME. WILL CONTINUE TO MONITOR PATIENT. ORDERED MEDICATIONS GIVEN. PATIENT TOLERATING THEM WELL. PATIENT NOW RESTING IN BED. WILL CONTINUE TO MONITOR PATIENT.
[2018-07-04] MEDS: SIMVASTATIN 20 MG TAB PO SCH (10:46)
[2018-07-04] MEDS: ASPIRIN 81 MG TAB.CHEW PO SCH (10:46)
--- NOTE | 2018-07-04 10:52 | NUR ---
BRANDYN FROM [facility] CALLED, NEEDED CONTACT INFORMATION FOR PATIENT'S FAMILY. CONTACT INFORMATION ABOUT PATIENT'S DAUGHTER, KIRAN, GIVEN. PHONE #: [phone].
--- NOTE | 2018-07-04 11:09 | NUR ---
EMILIA FROM [facility] IN TO SEE THE PATIENT. WILL AWAIT FOR HER EVALUATION.
--- NOTE | 2018-07-04 11:18 | NUR ---
PATIENT C/O OF ABDOMINAL PAIN 04/10. PATIENT BP AT 97/46, MORPHINE PRN NOT GIVEN. NORCO PRN GIVEN. PATIENT TOLERATED IT. SAFETY PRECAUTION IN PLACE, CALL LIGHT WITHIN REACH. WILL CONTINUE TO MONITOR PATIENT.
--- NOTE | 2018-07-04 11:29 | NUR ---
*S.T. BEDSIDE SWALLOW EVAL COMPLETED* Time in/out [id number] Please see report for details. Pt presents with adequate oropharyngeal swallow function for textures given. Pt refused solids, stating that at baseline he consumes pureed diet due to difficulty chewing. No overt s/s aspiration. Pt is, however, impulsive with straw sips, taking large amounts at time. Recommend: 1) Advance to pureed diet, thin liquids okay; no straws, cup sips only. 2) Assist with tray set up to promote self feeding 3) P.O. meds okay whole with thin liquids. No further S.T. tx indicated at this time, as pt is currently tolerating baseline diet textures. [id number] CJ [id number] CJ [id number] CJ NOMS LEVEL 3
--- NOTE | 2018-07-04 11:35 | NUR ---
DR. WHARTON IN TO SEE THE PATIENT. WILL WAIT FOR HIS EVALUATION.
--- NOTE | 2018-07-04 11:42 | NUR ---
PATIENT'S DAUGHTER JAS AND PATRICIO IN TO SEE THE PATIENT. SPEAKING TO DR. WHARTON. WILL WAIT FOR UPDATED ORDERS.
[2018-07-04] MEDS ORDERED: ALBUTEROL SULFATE/IPRATROPIU 3 ML SOL IH PRN (12:10)
[2018-07-04 12:24] LABS: APPEARANCE,URINE HAZY (CLEAR); BILIRUBIN,URINE 1+ (NEGATIVE); COLOR,URINE BROWN (YELLOW); LEUKOCYTE ESTERASE ,URINE 2+ (NEGATIVE); NITRITE, URINE NEGATIVE (NEGATIVE); PH,URINE 5.5 (5.0-9.0); UGLUCOSE NEGATIVE (NEGATIVE)
[2018-07-04 12:35] LABS: BLOOD, URINE 1+ (NEGATIVE); RBC,URINE 0-5 (RARE) /HPF (0-5); WBC,URINE 16-25 (MOD) /HPF (0-5)
[2018-07-04] MEDS: ALBUTEROL SULFATE/IPRATROPIU 3 ML SOL IH SCH ×2 (13:39→19:06)
--- NOTE | 2018-07-04 13:52 | NUR ---
PATIENT AUSTRIAN SPEAKING DAUGHTER AT BEDSIDE FOR INTERPRETATION PATIENT UNABLE TO FACILITATE INCENTIVE SPIROMETRY DUE TO PATIENT WEAKNESS WEATHER ALGORITHM SCIENTIST TO ATTEMPT AT A LATER TIME
--- NOTE | 2018-07-04 14:15 | NUR ---
Respiratory Manager Note: I faxed inquiry to [facility], phone number , fax number
--- NOTE | 2018-07-04 14:32 | NUR ---
PATIENT RESTING IN BED, NO SIGNS OF DISTRESS OR SOB NOTED ON ROOM AIR. SAFETY PRECAUTION IN PLACE, BED ALARM ON, BED ON LOWEST SETTING, CALL LIGHT WITHIN REACH, WILL CONTINUE TO MONITOR PATIENT.
--- NOTE | 2018-07-04 14:44 | NUR ---
07/04/18 RD INITIAL ASSESSMENT COMPLETED PLEASE REFER TO NUTRITION ASSESSMENT UNDER CARE ACTIVITY FOR ESTIMATED NUTRITIONAL NEEDS. 1. CONTINUE CARDIAC NA2GM PUREE WITH NEPRO TID DIET TOLERATED 2. PROVIDED NUTRITION EDUCATION TO FAMILY AND PATIENT REGARDING A DIET LOW IN POTASSIUM 3. RD TO FOLLOW-UP 2-3 DAYS, HIGH RISK KARINE TRAN RD
[2018-07-04] MEDS ORDERED: PNEUMOCOCCAL VACCINE 23 MCG/0.5 ML VIAL IMVAC SCH (15:00)
[2018-07-04] MEDS ORDERED: INFLUENZA VIRUS VACCINE QUAD 0.5 ML SYR IMVAC SCH (15:00)
[2018-07-04 15:18] LABS: ANION GAP 11.3 (8-16); CARBON DIOXIDE 19.1 mmol/L (21-32); CHLORIDE 94 mmol/L (98-107); GLUCOSE 104 mg/dL (74-106); POTASSIUM 4.4 mmol/L (3.5-5.1); UREA NITROGEN, BLOOD 47 mg/dL (7-18)
[2018-07-04 15:45] LABS: SODIUM SERUM 120 mmol/L (136-145)
--- NOTE | 2018-07-04 16:35 | NUR ---
BLOOD SUGAR 128, NO COVERAGE NEEDED. VS WNL. PATIENT DENIES PAIN AT THIS TIME. SAFETY PRECAUTION IN PLACE, CALL LIGHT WITHIN REACH. WILL CONTINUE TO MONITOR PATIENT.
--- NOTE | 2018-07-04 18:35 | NUR ---
INFORMED DR. VALENTIN ABOUT PATIENT'S TOTAL OUTPUT FOR SHIFT 190 ML IN MALCOLM BAG. ALSO ABOUT'S DIET WHICH IS NOT CONSISTENT CARB. DR. VALENTIN AWARE AND STATED THAT SHE WILL UPDATED THE ORDERS. RN VERBALIZED UNDERSTANDING.
--- NOTE | 2018-07-04 19:06 | NUR ---
FAMILY AT BEDSIDE. PATIENT TERMINATED TREATMENT 5 MINUTES AFTER IT WAS STARTED. SOB ONLY WITH EXCERTION. VITALS ARE O2 SATS 100% ON RA, PULSE 73, RATE 16, AND CLEAR BREATH SOUNDS WITH GOOD AERATION HEARD. LEFT RT NUMBER ON WHITE BOARD SHOULD ANYTHING BE NEEDED BEFORE NEXT Q6 TX.
--- NOTE | 2018-07-04 19:06 | NUR ---
ATTEMPTED INCENTIVE SPIROMETRY BUT PATIENT REFUSED AND STATED HE COULDN'T AT THIS TIME. I EMPHASIZED ITS IMPORTANCE AND ASKED FAMILY TO CONTINUE URGING HIM TO TRY IT. WILL CONTINUE TO MONITOR.
--- NOTE | 2018-07-04 19:20 | NUR ---
REPORT GIVEN AT BEDSIDE TO COLORIST NURSE FOR CONTINUITY OF CARE. PATIENT IN STABLE CONDITION. FAMILY AT BEDSIDE.
--- NOTE | 2018-07-04 19:21 | NUR ---
RECEIVED REPORT FROM DAY SHIFT NURSE TOPHER-RN AT BEDSIDE. PT FAMILY AT BEDSIDE. PT AOX2, ON ROOM AIR, IV LEFT AC #22G RUNNING NS @75ML/HR. WEAKNESS ON LEFT SIDE NOTED. MALCOLM IN PLACE DRAINING DARK TRISTEN URINE. SCAB ON RIGHT ARM NOTED. DISCUSSED PLAN OF CARE WITH FAMILY AND PT. NO S/S OF RESPIRATORY DISTRESS OR DISCOMFORT NOTED AT THIS TIME. BED IN LOWEST POSITION, BED BREAKS ON, BOTH SIDE RAILS UP, SEIZURE PRECAUTIONS, FALL PRECAUTIONS AND ASPIRATION PRECAUTIONS IN PLACE. BEDSIDE TABLE AND CALL LIGHT ARE WITHIN REACH. WILL CONTINUE TO MONITOR.
--- NOTE | 2018-07-04 20:00 | NUR ---
VITAL SIGNS TAKEN AND TOLERATED WELL. NO S/S OF RESPIRATORY DISTRESS OR DISCOMFORT NOTED AT THIS TIME. WILL CONTINUE TO MONITOR.
--- NOTE | 2018-07-04 20:00 | NUR ---
BLOOD GLUCOSE 156-INSULIN COVERAGE NEEDED.
[2018-07-04] MEDS: LACTULOSE 20 GM/30 ML UDC PO SCH (20:41)
--- NOTE | 2018-07-04 20:42 | NUR ---
SCHEDULED MEDICATION GIVEN AND TOLERATED WELL. INSULIN COVERAGE GIVEN AND TOLERATED WELL. COREG NOT GIVEN FOR DECREASED BLOOD PRESSURE. NO S/S OF RESPIRATORY DISTRESS OR DISCOMFORT NOTED AT THIS TIME. WILL CONTINUE TO MONITOR.
[2018-07-04] MEDS: INSULIN LISPRO SLIDING SCALE 100 UNITS/ML VIAL SUBQ PRN (20:43)
[2018-07-04] MEDS ORDERED: INSULIN DETEMIR U SCH (21:00)
[2018-07-04 21:03] LABS: ANION GAP 10.1 (8-16); CARBON DIOXIDE 19.4 mmol/L (21-32); CHLORIDE 95 mmol/L (98-107); GLUCOSE 150 mg/dL (74-106); POTASSIUM 4.5 mmol/L (3.5-5.1); UREA NITROGEN, BLOOD 46 mg/dL (7-18)
[2018-07-04 21:05] LABS: SODIUM SERUM 120 mmol/L (136-145)
--- NOTE | 2018-07-04 23:00 | NUR ---
IV CONTINUES TO BEEP DESPITE REORIENTATION TO KEEP LEFT ARM STRAIGHT. USED SMALL SPLINT TO ELBOW TO PREVENT BENDING OF ARM. PT TOLERATED WELL. NO S/S OF RESPIRATORY DISTRESS OR DISCOMFORT NOTED AT THIS TIME. WILL CONTINUE TO MONITOR.
[2018-07-05] VITALS: BP 125/62
--- NOTE | 2018-07-05 | NUR ---
VITAL SIGNS TAKEN AND TOLERATED WELL. NO S/S OF RESPIRATORY DISTRESS OR DISCOMFORT NOTED AT THIS TIME. WILL CONTINUE TO MONITOR.
--- NOTE | 2018-07-05 02:00 | NUR ---
PT CONTINUES TO SLEEP. NO S/S OF RESPIRATORY DISTRESS OR DISCOMFORT NOTED AT THIS TIME. WILL CONTINUE TO MONITOR.
--- NOTE | 2018-07-05 02:34 | NUR ---
PT HAD A BM. JOSIE GIVENS AND DEREK ARE ASSISTING PT WITH PERINEAL CARE AND LINEN CHANGES. NO S/S OF RESPIRATORY DISTRESS OR DISCOMFORT NOTED AT THIS TIME. WILL CONTINUE TO MONITOR.
[2018-07-05 04:00] VITALS: BP 117/61
--- NOTE | 2018-07-05 04:00 | NUR ---
VITAL SIGNS TAKEN AND TOLERATED WELL. NO S/S OF RESPIRATORY DISTRESS OR DISCOMFORT NOTED AT THIS TIME. WILL CONTINUE TO MONITOR.
--- NOTE | 2018-07-05 06:00 | NUR ---
BLOOD GLUCOSE 223-INSULIN COVERAGE NEEDED.
[2018-07-05] MEDS: BLOOD GLUCOSE MONITORING 1 DEV DEV FS SCH ×4 (06:05→20:51)
[2018-07-05] MEDS: INSULIN LISPRO SLIDING SCALE 100 UNITS/ML VIAL SUBQ PRN ×4 (06:13→20:58)
[2018-07-05 06:49] LABS: HEMATOCRIT 33.7 % (36-52); HEMOGLOBIN 10.9 g/dL (12.0-18.0); MEAN CORPUSCULAR HEMOGLOBIN 25 pg (27-31); MEAN CORPUSCULAR HGB CONC 32 g/dL (33-37); MEAN CORPUSCULAR VOLUME 77.2 fL (80-94); PLATELET COUNT (AUTO) 129 K/uL (140-450); RED BLOOD CELL COUNT(AUTO) 4.37 MIL/uL (4.20-6.10); RED CELL DISTRIBUTION WIDTH 18.1 % (11.6-13.7); WHITE BLOOD COUNT (AUTO) 20.5 K/uL (4.8-10.8)
[2018-07-05] MEDS: ALBUTEROL SULFATE/IPRATROPIU 3 ML SOL IH SCH ×3 (07:00→19:24)
[2018-07-05 07:04] LABS: MAGNESIUM 1.8 mg/dL (1.8-2.4); PHOSPHORUS 3.9 mg/dL (2.5-4.9)
--- NOTE | 2018-07-05 07:09 | NUR ---
ENDORSED PT CARE TO DAY SHIFT NURSE TOPHER-RN FOR CONTINUITY OF CARE.
--- NOTE | 2018-07-05 07:10 | NUR ---
BEDSIDE REPORT RECEIVED FROM MANAGER FINANCIAL SYSTEMS NURSE FOR CONTINUITY OF CARE. PATIENT IS ON ROOM AIR. NO SOB. PATIENT DENIES PAIN. WEAKNESS ON LEFT SIDE NOTED. IV ON LEFT AC 22 G PATENT AND INTACT WITH NS INFUSING AT 75 ML/HR. MALCOLM IN PLACE DRAINING DARK YELLOW URINE, 150 ML OF URINE EMPTIED FROM MALCOLM BAG. VITAL SIGNS WNL. UPDATED BOARD. SAFETY, SEIZURE, AND ASPIRATION PRECAUTIONS IN PLACE. BED ALARM ON, BED IN LOWEST POSITION, CALL LIGHT WITHIN REACH. WILL CONTINUE TO MONITOR PATIENT.
[2018-07-05 07:34] LABS: LYMPHOCYTES % (MANUAL) 1 % (20-46); MONOCYTES % (MANUAL) 2 % (5-12)
--- NOTE | 2018-07-05 07:36 | NUR ---
PT WANTS TO SLEEP. NO HHN TX GIVEN AT THIS TIME. RN KY AT BEDSIDE. NO SOB OR DISTRESS NOTED. WILL CONTINUE TO MONITOR.
[2018-07-05 07:46] LABS: ANION GAP 12.8 (8-16); CARBON DIOXIDE 17.7 mmol/L (21-32); CHLORIDE 95 mmol/L (98-107); CREATININE 1.9 mg/dL (0.7-1.3); GLUCOSE 221 mg/dL (74-106); POTASSIUM 4.5 mmol/L (3.5-5.1); UREA NITROGEN, BLOOD 45 mg/dL (7-18)
[2018-07-05 07:47] LABS: SODIUM SERUM 121 mmol/L (136-145)
--- NOTE | 2018-07-05 07:49 | NUR ---
RECEIVED CALL FROM LAB, LACTIC ACID 2.3, NA 121. DR. WHARTON AWARE. NO CHANGE IN ORDERS. WILL CONTINUE TO MONITOR PATIENT.
[2018-07-05 07:50] VITALS: BP 119/59
--- NOTE | 2018-07-05 08:35 | NUR ---
PHYSICAL THERAPY IN TO SEE THE PATIENT. PATIENT AMBULATED TO BATHROOM WITH PHYSICAL THERAPISTS AND HAD A BM. WILL CONTINUE TO MONITOR PATIENT.
[2018-07-05 08:40] LABS: T4 (THYROXINE) 6.3 ug/dL (4.5-12.0)
[2018-07-05] MEDS: BENAZEPRIL 5 MG TAB PO SCH (09:00)
[2018-07-05] MEDS: FUROSEMIDE 40 MG/4 ML VIAL IVP SCH (09:00)
[2018-07-05] MEDS: ISOSORBIDE MONONITRATE 30 MG TABER PO SCH (09:00)
--- NOTE | 2018-07-05 09:05 | NUR ---
ORDERED MEDICATIONS GIVEN. BP MEDICATIONS HELD PER DR. WHARTON'S ORDERS. PATIENT TOLERATED IT WELL. NO SIGNS OF DISTRESS OR SOB NOTED ON ROOM AIR. PATIENT DENIES PAIN. SAFETY PRECAUTION IN PLACE, CALL LIGHT WITHIN REACH, WILL CONTINUE TO MONITOR PATIENT.
[2018-07-05] MEDS: SIMVASTATIN 20 MG TAB PO SCH (09:08)
[2018-07-05] MEDS: ASPIRIN 81 MG TAB.CHEW PO SCH (09:08)
[2018-07-05] MEDS: LACTOBACILLUS RHAMNOSUS GG 1 EACH CAP PO SCH (09:08)
[2018-07-05] MEDS: SODIUM CHLORIDE 1 GM TAB PO SCH ×2 (09:08→20:52)
[2018-07-05] MEDS: LACTULOSE 20 GM/30 ML UDC PO SCH ×2 (09:08→20:51)
[2018-07-05] MEDS: CARVEDILOL 3.125 MG TAB PO SCH ×2 (09:30→20:51)
--- NOTE | 2018-07-05 09:30 | NUR ---
SPOKE TO DR. WHARTON ABOUT PATIENT'S SINUS TACHYCARDIA AND LOW PLATELET COUNT, COREG AND HEPARIN CAN BE GIVEN PER DR. WHARTON. RN VERBALIZED UNDERSTANDING. ORDERED MEDICATION GIVEN. PATIENT TOLERATED THEM. WILL CONTINUE TO MONITOR PATIENT.
[2018-07-05] MEDS: NACL 0.9% 1,000 ML IV SCH ×2 (09:36→23:55)
--- NOTE | 2018-07-05 10:47 | NUR ---
PATIENT CURRENTLY GETTING US OF KIDNEYS, WILL WAIT FOR RESULTS. FAMILY AT BEDSIDE.
[2018-07-05 12:00] VITALS: BP 109/55
--- NOTE | 2018-07-05 12:12 | NUR ---
BLOOD SUGAR 242, COVERAGE GIVEN. PATIENT TOLERATED IT WELL. FAMILY AT BEDSIDE, PATRICIO, DAUGHTER JAS AND SON SARA. VERBALIZED PLAN OF CARE AND UPDATED THEM ON PATIENT'S STATUS. VS WNL. EDUCATED FAMILY MEMBERS ABOUT PATIENT TAKING THE SUPPLEMENT NEPRO TID EVEN IF POOR APPETITE AND USE OF INCENTIVE SPIROMETER. DAUGHTER JAS VERBALIZED UNDERSTANDING. WILL CONTINUE TO MONITOR PATIENT.
--- NOTE | 2018-07-05 12:17 | NUR ---
PT IS ASLEEP. PT'S REFUSED HHN TX AT THIS TIME TO LET PT SLEEP. NO SOB OR DSITRESS NOTED. WILL CONTINUE TO MONITOR.
[2018-07-05 16:00] VITALS: BP 111/64
[2018-07-05 16:47] LABS: CARBON DIOXIDE 19.2 mmol/L (21-32); CHLORIDE 98 mmol/L (98-107); GLUCOSE 184 mg/dL (74-106); POTASSIUM 4.2 mmol/L (3.5-5.1); SODIUM SERUM 123 mmol/L (136-145)
[2018-07-05 16:48] LABS: CREATININE 1.9 mg/dL (0.7-1.3); UREA NITROGEN, BLOOD 42 mg/dL (7-18)
--- NOTE | 2018-07-05 17:48 | NUR ---
BLOOD SUGAR 160, COVERAGE GIVEN. PATIENT TOLERATED IT WELL. FAMILY AT BEDSIDE, PATRICIO, VERBALIZED PLAN OF CARE AND UPDATED THEM ON PATIENT'S STATUS. VS WNL. WILL CONTINUE TO MONITOR PATIENT.
--- NOTE | 2018-07-05 19:25 | NUR ---
REPORT GIVEN AT BEDSIDE FOR CONTINUITY OF CARE TO JANITORIAL ASSISTANT NURSE. PATIENT IN STABLE CONDITION.
--- NOTE | 2018-07-05 19:26 | NUR ---
RECEIVED REPORT FROM DAYSSDFT NURSE AT BEDSIDE FOR CONTINUITY OF CARE. PT AAOX2. KINYARWANDA SPEAKING ONLY. PT IV NOTED LAC 22G NS 75. PT HAS MALCOLM IN PLACE. PT SKIN INTACT. NO SOB NO S/S OF DISTRESS. ON RA. BED LOWERED CALL LIGHT WITHIN REACH WILL CONTINUE TO MONITOR.
[2018-07-05 20:00] VITALS: BP 96/54
[2018-07-05 21:17] LABS: ANION GAP 8.1 (8-16); CARBON DIOXIDE 19.2 mmol/L (21-32); CHLORIDE 99 mmol/L (98-107); CREATININE 1.8 mg/dL (0.7-1.3); GLUCOSE 198 mg/dL (74-106); POTASSIUM 4.3 mmol/L (3.5-5.1); UREA NITROGEN, BLOOD 41 mg/dL (7-18)
[2018-07-05 21:23] LABS: SODIUM SERUM 122 mmol/L (136-145)
[2018-07-06] VITALS: BP 109/52
--- NOTE | 2018-07-06 02:59 | NUR ---
PT SLEEPING NO SOB NO S/S OF DISTRESS ON RA. WILL CONTINUE TO MONITOR.
[2018-07-06 03:00] VITALS: BP 120/52
[2018-07-06] MEDS: BLOOD GLUCOSE MONITORING 1 DEV DEV FS SCH ×4 (06:20→21:09)
[2018-07-06] MEDS: INSULIN LISPRO SLIDING SCALE 100 UNITS/ML VIAL SUBQ PRN ×4 (06:23→21:17)
[2018-07-06 06:50] LABS: HEMATOCRIT 32.1 % (36-52); HEMOGLOBIN 10.4 g/dL (12.0-18.0); MEAN CORPUSCULAR HEMOGLOBIN 26 pg (27-31); MEAN CORPUSCULAR HGB CONC 32 g/dL (33-37); MEAN CORPUSCULAR VOLUME 79.3 fL (80-94); PLATELET COUNT (AUTO) 119 K/uL (140-450); RED BLOOD CELL COUNT(AUTO) 4.05 MIL/uL (4.20-6.10); RED CELL DISTRIBUTION WIDTH 18.2 % (11.6-13.7); WHITE BLOOD COUNT (AUTO) 18.2 K/uL (4.8-10.8)
[2018-07-06 07:02] LABS: ANION GAP 10.2 (8-16); CHLORIDE 99 mmol/L (98-107); CREATININE 1.8 mg/dL (0.7-1.3); GLUCOSE 221 mg/dL (74-106); POTASSIUM 4.2 mmol/L (3.5-5.1); SODIUM SERUM 125 mmol/L (136-145); UREA NITROGEN, BLOOD 38 mg/dL (7-18)
[2018-07-06] MEDS: ALBUTEROL SULFATE/IPRATROPIU 3 ML SOL IH SCH ×3 (07:15→19:10)
[2018-07-06 07:30] LABS: LYMPHOCYTES % (MANUAL) 4 % (20-46)
[2018-07-06 07:31] LABS: MONOCYTES % (MANUAL) 3 % (5-12)
--- NOTE | 2018-07-06 07:31 | NUR ---
ENDORSED REPORT TO DAYSMOFT NURSE FOR CONTINUITY OF CARE.
--- NOTE | 2018-07-06 07:32 | NUR ---
RECEIVED PT FROM THE INSURANCE ADMINISTRATOR NURSE AT BEDSIDE FOR CONTINUITY OF CARE. PT IS AWAKE AND SOMEWHAT ORIENTED. INTRODUCED MYSELF AND UPDATED THE BOARD. PT IS ON BEDREST. SKIN INTACT. L ARM SLIGHT EDEMA. LBM 10/. IV ON L AC 22G NS AT 75 ML INFUSING. PT ON A FLUID RESTRICTION OF 1500ML/DAY. V/S WITHIN NORMAL RANGE. WILL CONTINUE TO MONITOR PT.
[2018-07-06 08:00] VITALS: BP 123/71
[2018-07-06] MEDS: LACTULOSE 20 GM/30 ML UDC PO SCH ×2 (09:05→21:10)
[2018-07-06] MEDS: ASPIRIN 81 MG TAB.CHEW PO SCH (09:06)
[2018-07-06] MEDS: ISOSORBIDE MONONITRATE 30 MG TABER PO SCH (09:06)
[2018-07-06] MEDS: CARVEDILOL 3.125 MG TAB PO SCH ×2 (09:06→21:00)
[2018-07-06] MEDS: LACTOBACILLUS RHAMNOSUS GG 1 EACH CAP PO SCH (09:06)
[2018-07-06] MEDS: SIMVASTATIN 20 MG TAB PO SCH (09:07)
[2018-07-06] MEDS: SODIUM CHLORIDE 1 GM TAB PO SCH ×2 (09:07→21:10)
[2018-07-06] MEDS: FUROSEMIDE 40 MG/4 ML VIAL IVP SCH (09:07)
[2018-07-06] MEDS: BENAZEPRIL 5 MG TAB PO SCH (09:07)
--- NOTE | 2018-07-06 09:20 | NUR ---
ADMINISTERED MORNING MEDS. PT TOLERATED WELL. WILL CONTINUE TO MONITOR PT.
[2018-07-06 12:00] VITALS: BP 107/67
--- NOTE | 2018-07-06 12:05 | NUR ---
07/06/18 RD FOLLOW UP COMPLETED PLEASE REFER TO NUTRITION ASSESSMENT UNDER CARE ACTIVITY FOR ESTIMATED NUTRITIONAL NEEDS. 1. CONTINUE CCHO 60GM, CARDIAC, NA2GM, PUREE WITH NEPRO TID DIET TOLERATED 2. PROVIDED NUTRITION EDUCATION TO FAMILY AND PATIENT REGARDING HEAD AND NECK CANCER 3. RD TO FOLLOW-UP 2-3 DAYS, HIGH RISK KARINE TRAN RD
[2018-07-06] MEDS: NACL 0.9% 1,000 ML IV SCH (12:28)
--- NOTE | 2018-07-06 12:30 | NUR ---
ADMINISTERED NEW IVF. SAME RATE AT 75ML/HR. PT TOLERATING WELL. WILL CONTINUE TO MONITOR PT.
[2018-07-06] MEDS ORDERED: COMMUNICATION ORDER MC ONE (14:45)
[2018-07-06 15:25] LABS: ANION GAP 13.1 (8-16); CARBON DIOXIDE 18.8 mmol/L (21-32); CHLORIDE 98 mmol/L (98-107); CREATININE 1.7 mg/dL (0.7-1.3); GLUCOSE 256 mg/dL (74-106); POTASSIUM 3.9 mmol/L (3.5-5.1); SODIUM SERUM 126 mmol/L (136-145); UREA NITROGEN, BLOOD 38 mg/dL (7-18)
[2018-07-06 16:00] VITALS: BP 81/43
[2018-07-06] MEDS ORDERED: TOLVAPTAN 15 MG PO SCH (16:00)
--- NOTE | 2018-07-06 16:30 | NUR ---
PREPARED TO ADMINISTER SAMSCA. PT'S FAMILY MEMBER KNOCKED OVER THE MED CUP. CALLED PHARMACY TO BRING UP ANOTHER. WILL AWAIT TO ADMINISTER.
--- NOTE | 2018-07-06 17:00 | NUR ---
ADMINISTERED MED TO PT. PT TOLERATED WELL. WILL CONTINUE TO MONITOR PT.
--- NOTE | 2018-07-06 19:15 | NUR ---
ENDORSED PT TO THE AIRCRAFT LOG CLERK NURSE AT BEDSIDE FOR CONTINUITY OF CARE. PT IS IN STABLE CONDITION. FAMILY AT BEDSIDE.
--- NOTE | 2018-07-06 19:16 | NUR ---
RECEIVED REPORT FROM DAYSMDFT NURSE AT BEDSIDE FOR CONTINUITY OF CARE. PT AAOX3. CZECH SPEAKING ONLY. PT IV NOTED LAC 22G NS 75. PT HAS MALCOLM IN PLACE. PT SKIN INTACT. NO SOB NO S/S OF DISTRESS. ON RA. BED LOWERED CALL LIGHT WITHIN REACH WILL CONTINUE TO MONITOR.
[2018-07-06 20:00] VITALS: BP 94/38
[2018-07-07] VITALS: BP 98/62
[2018-07-07] MEDS: NACL 0.9% 1,000 ML IV SCH (02:35)
--- NOTE | 2018-07-07 03:00 | NUR ---
RECEIVED REPORT FROM DAYSHIFT NURSE AT BEDSIDE FOR CONTINUITY OF CARE. PT AAOX4. PT IV NOTED LAC 20G. PT HAS NO SOB NO S/S OF DISTRESS ON RA. PT AMBULATORY, PT ORIENTED TO ROOM. WILL CONTINUE TO MONITOR.
[2018-07-07 04:00] VITALS: BP 101/57
--- NOTE | 2018-07-07 05:01 | NUR ---
WRONG PT NOTES
[2018-07-07] MEDS: BLOOD GLUCOSE MONITORING 1 DEV DEV FS SCH ×2 (06:35→12:01)
[2018-07-07] MEDS: INSULIN LISPRO SLIDING SCALE 100 UNITS/ML VIAL SUBQ PRN ×2 (06:41→12:05)
[2018-07-07] MEDS: ALBUTEROL SULFATE/IPRATROPIU 3 ML SOL IH SCH ×2 (06:57→13:30)
[2018-07-07 06:59] LABS: HEMATOCRIT 30.6 % (36-52); HEMOGLOBIN 9.6 g/dL (12.0-18.0); MEAN CORPUSCULAR HEMOGLOBIN 25 pg (27-31); MEAN CORPUSCULAR HGB CONC 31 g/dL (33-37); MEAN CORPUSCULAR VOLUME 78.4 fL (80-94); PLATELET COUNT (AUTO) 111 K/uL (140-450); RED CELL DISTRIBUTION WIDTH 17.4 % (11.6-13.7); WHITE BLOOD COUNT (AUTO) 17.8 K/uL (4.8-10.8)
[2018-07-07 07:14] LABS: ANION GAP 12.1 (8-16); CARBON DIOXIDE 18.9 mmol/L (21-32); CHLORIDE 100 mmol/L (98-107); CREATININE 1.8 mg/dL (0.7-1.3); GLUCOSE 261 mg/dL (74-106); SODIUM SERUM 127 mmol/L (136-145); UREA NITROGEN, BLOOD 38 mg/dL (7-18)
--- NOTE | 2018-07-07 07:20 | NUR ---
ENDORSED REPORT TO DAYSHIFT NURSE AT BEDSIDE FOR CONTINUITY OF CARE.
[2018-07-07 07:26] LABS: LYMPHOCYTES % (MANUAL) 3 % (20-46); MONOCYTES % (MANUAL) 3 % (5-12)
--- NOTE | 2018-07-07 07:30 | NUR ---
PATIENT WAS SLEEPING COMFORTABLY, EASILY AROUSABLE BY NAME. RESPIRATION EVEN, UNLABOR ON ROOM AIR. SKIN DRY AND WARM. IV PATENT AND INTACT. MALCOLM DRAINING CLEAR YELLOW URINE. DENIED PAIN, SOB AT THIS TIME. PLAN OF CARE WAS DISCUSSED WITH PATIENT. BED AT LOW POSITION, SIDE RAILS UP, BED ALARM ACTIVE, CALL LIGHT WITHIN REACH.
[2018-07-07 08:00] VITALS: BP 91/43
[2018-07-07] MEDS: BENAZEPRIL 5 MG TAB PO SCH (08:51)
[2018-07-07] MEDS: FUROSEMIDE 40 MG/4 ML VIAL IVP SCH (08:51)
[2018-07-07] MEDS: ISOSORBIDE MONONITRATE 30 MG TABER PO SCH (08:51)
[2018-07-07] MEDS: CARVEDILOL 3.125 MG TAB PO SCH (08:51)
[2018-07-07] MEDS: LACTOBACILLUS RHAMNOSUS GG 1 EACH CAP PO SCH (08:59)
[2018-07-07] MEDS: SIMVASTATIN 20 MG TAB PO SCH (08:59)
[2018-07-07] MEDS: ASPIRIN 81 MG TAB.CHEW PO SCH (09:00)
[2018-07-07] MEDS: SODIUM CHLORIDE 1 GM TAB PO SCH (09:00)
[2018-07-07] MEDS: LACTULOSE 20 GM/30 ML UDC PO SCH (09:00)
--- NOTE | 2018-07-07 09:15 | NUR ---
PATIENT WAS SLEEPING COMFORTABLY. RESPIRATION EVEN, UNLABOR ON ROOM AIR. NO DISTRESS NOTED AT THIS TIME. MEDS WERE GIVEN PER ORDER. FAMILY AT BEDSIDE. CALL LIGHT WITHIN REACH
[2018-07-07] MEDS ORDERED: ROC250I IV (11:20)
[2018-07-07 12:00] VITALS: BP 89/46
--- NOTE | 2018-07-07 12:00 | NUR ---
PATIENT AWAKE, ALERT. RESPIRATION EVEN, UNLABOR ON ROOM AIR. VS IS STABLE. MEDS WERE GIVEN PER ORDER. NO DISTRESS NOTED AT THIS TIME. FAMILY AT BEDSIDE. CALL LIGHT WITHIN REACH
--- NOTE | 2018-07-07 14:45 | NUR ---
DISCHARGE INSTRUCTION WAS GIVEN AND EXPLAINED TO PATIENT'S DAUGHTER. DAUGHTER VERBALIZED UNDERSTANDING. IV WAS REMOVED, CATHETER INTACT, NO ACTIVE BLEEDING SEEN. ID BAND AND REGULATOR PIN INSERTER WERE REMOVED. NEW IV WAS STARTED ON RIGHT FOREARM 22G FOR HOME IV ANTIBIOTIC.
--- NOTE | 2018-07-07 17:03 | NUR ---
PATIENT WAS ESCORTED OUT IN WHEELCHAIR BY STAFF. ALL BELONGINGS WERE TAKEN WITH PATIENT AND FAMILY. PATIENT IS STABLE AT THIS TIME.
[2018-07-10 08:20] LABS: OSMOLALITY,URINE 338 mOsmol/k (50-1400)
== END 2018-07-07 17:04 | disposition home health service (06) | DRG 871 ==
LOC: MED 01:20 → MTU 03:41
PROVIDERS: ADMIT General Practice; ATTEND General Practice
PROC: 3E0234Z Introduction of Serum, Toxoid and Vaccine into Muscle, Percutaneous Approach (ICD-10-PCS; principal; 2018-07-04)
DX: A41.9 Sepsis, unspecified organism (principal); G93.41 Metabolic encephalopathy; N17.0 Acute kidney failure with tubular necrosis; E43 Unspecified severe protein-calorie malnutrition; I50.43 Acute on chronic combined systolic (congestive) and diastolic (congestive) heart failure; N39.0 Urinary tract infection, site not specified; E87.1 Hypo-osmolality and hyponatremia; I43 Cardiomyopathy in diseases classified elsewhere; J98.11 Atelectasis; I13.0 Hypertensive heart and chronic kidney disease with heart failure and stage 1 through stage 4 chronic kidney disease, or unspecified chronic kidney disease; R65.20 Severe sepsis without septic shock; N40.0 Benign prostatic hyperplasia without lower urinary tract symptoms; E87.8 Other disorders of electrolyte and fluid balance, not elsewhere classified; E11.22 Type 2 diabetes mellitus with diabetic chronic kidney disease; K74.60 Unspecified cirrhosis of liver; E78.5 Hyperlipidemia, unspecified; E86.0 Dehydration; N18.3 Chronic kidney disease, stage 3 (moderate); B95.2 Enterococcus as the cause of diseases classified elsewhere; C76.0 Malignant neoplasm of head, face and neck; Z79.82 Long term (current) use of aspirin; Z79.84 Long term (current) use of oral hypoglycemic drugs; Z79.899 Other long term (current) drug therapy; Z86.73 Personal history of transient ischemic attack (TIA), and cerebral infarction without residual deficits; Z85.46 Personal history of malignant neoplasm of prostate; Z95.810 Presence of automatic (implantable) cardiac defibrillator; Z87.891 Personal history of nicotine dependence; Z68.24 Body mass index [BMI] 24.0-24.9, adult; Z95.5 Presence of coronary angioplasty implant and graft; Z91.14 Patient's other noncompliance with medication regimen; Z23 Encounter for immunization
CPT/HCPCS: 36415; 70450; 71045; 76700; 76770; 80048; 80053; 81001; 82140; 82150; 82550; 82553; 82948; 83036; 83605; 83615; 83690; 83735; 83874; 83880; 83930; 83935; 84100; 84134; 84295; 84436; 84443; 84484; 85025; 85610; 85730; 87040; 87081; 87086; 87186; 87804; 90658; 90732; 92610; 93005; 93971; 94640; 96361; 96365; 96375; 97110; 97116; 97530; 99285; J0696; J1644; J1815; J1885; J1940; J7030; J7060; J7620; Q0092